=== PATIENT | male | born 1985 | race Caucasian/White ===

== ENCOUNTER 2018-04-01 11:47 | Emergency (ER) | payer MEDICAID ==
[2018-04-01 12:10] LABS: BILIRUBIN,URINE NEGATIVE (NEGATIVE); CLARITY,URINE CLEAR (CLEAR); GLUCOSE, URINE (UA) NEGATIVE (NEGATIVE); KETONES,URINE (UA) NEGATIVE (NEGATIVE); LEUKOCYTE ESTERASE, URINE NEGATIVE (NEGATIVE); NITRITE,URINE NEGATIVE (NEGATIVE); OCCULT BLOOD,URINE NEGATIVE (NEGATIVE); PH,URINE 8.5 PH (5.0-7.5); PROTEIN,URINE TRACE mg/dL (NEGATIVE); UROBILINOGEN,URINE 0.2 (NORMAL) E.U./dL (NORMAL)
[2018-04-01 12:43] LABS: BASOPHILS % (AUTO) 0.2 %; EOSINOPHILS % (AUTO) 0.3 %; HGB - HEMOGLOBIN 13.9 g/dL (14.0-18.0); LYMPHOCYTES # (AUTO) 0.8 10^3/uL (1.5-3.5); LYMPHOCYTES % (AUTO) 9.4 %; MEAN CORPUSCULAR HEMOGLOBIN 29.7 pg (27.0-31.0); MEAN CORPUSCULAR HGB CONC 33.8 g/dL (32.0-36.0); MEAN CORPUSCULAR VOLUME 87.7 fL (80.0-94.0); MEAN PLATELET VOLUME 7.7 fL (7.4-11.4); MONOCYTES # (AUTO) 0.3 10^3/uL (0.0-1.0); MONOCYTES % (AUTO) 3.7 %; NEUTROPHILS # (AUTO) 7.2 10^3/uL (1.5-6.6); NEUTROPHILS % (AUTO) 86.4 %; PLT - PLATELET COUNT 217 10^3/uL (130-450); RED BLOOD COUNT 4.67 10^6/uL (4.70-6.10); RED CELL DISTRIBUTION WIDTH 12.6 % (12.0-15.0); WHITE BLOOD COUNT 8.3 x10^3/uL (4.8-10.8)
[2018-04-01 12:55] LABS: ALBUMIN 4.4 g/dL (3.2-5.5); ALBUMIN/GLOBULIN RATIO 1.8 (1.0-2.2); BILIRUBIN,TOTAL 0.9 mg/dL (0.2-1.0); CALCIUM 9.3 mg/dL (8.5-10.3); CREATININE 0.7 mg/dL (0.6-1.2); TOTAL PROTEIN 6.9 g/dL (6.7-8.2)
[2018-04-01] MEDS ORDERED: MORPHINE 2 MG/ML SYRINGE IVP STA ×2 (14:33→16:55)
[2018-04-01] MEDS ORDERED: ONDANSETRON 4 MG/2 ML VIAL IVP STA (14:33)
[2018-04-01] MEDS ORDERED: SODIUM CHLORIDE 0.9% 1,000 ML IV ONE (14:33)
--- NOTE | 2018-04-01 14:36 | ED Physician Documentation ---
History of Present Illness - Stated complaint Stated Complaint: R SIDE PX - Chief complaint Chief Complaint: Abd Pain - Additonal information Additional information: hx from pt 32 m no pmhx no prior surgeries was fine yesterday this AM severe right side abd pain rad to back no fever + NV no diarrhea no hematuria no pain Review of Systems Constitutional: denies: Fever Cardiac: denies: Chest pain / pressure Respiratory: denies: Dyspnea GI: reports: Abdominal Pain, Nausea, Vomiting. denies: Diarrhea, Bloody / black stool : denies: Dysuria, Hematuria, Testicular pain Musculoskeletal: reports: Back pain Endocrine: denies: Easy bruising / bleeding Immunocompromised: denies: Immunocompromised PD PAST MEDICAL HISTORY - Past Surgical History Past Surgical History: No - Present Medications Home Medications: Ambulatory Orders Medication Instructions Recorded Confirmed oxyCODONE [Roxicodone] 5 mg PO Q4-6H PRN #15 tablet 04/01/18 - Allergies Allergies/Adverse Reactions: Allergies Allergy/AdvReac Type Severity Reaction Status Date / Time No Known Drug Allergies Allergy Verified 04/01/18 11:57 - Social History Does the pt smoke?: Yes Smoking Status: Current every day smoker Does the pt have substance abuse?: Yes - Immunizations Immunizations are current?: Yes - POLST Patient has POLST: No PD ED PE NORMAL - Vitals Vital signs reviewed: Yes - Neck Neck: Supple, no meningeal sign - Cardiac Cardiac: RRR - Respiratory Respiratory: No respiratory distress, Clear bilaterally - Abdomen Abdomen: Normal bowel sounds, Soft, Other (sig TTP with guarding right side) - Back Back: No CVA TTP - Derm Derm: Normal color - Neuro Neuro: Alert and oriented X 3, No motor deficit Results - Vitals Vitals: Vital Signs - 24 hr 04/01/18 04/01/18 04/01/18 11:55 16:52 18:08 Temperature 35.9 C L Heart Rate 55 L 49 L 68 Respiratory 20 14 14 Rate Blood Pressure 144/67 H 139/77 H 110/61 O2 Saturation 100 100 99 Oxygen O2 Source Room air - Labs Labs: Laboratory Tests 04/01/18 04/01/18 04/01/18 12:00 12:36 12:36 WBC 8.3 RBC 4.67 L Hgb 13.9 L Hct 41.0 L MCV 87.7 MCH 29.7 MCHC 33.8 RDW 12.6 Plt Count 217 MPV 7.7 Neut # (Auto) 7.2 H Lymph # (Auto) 0.8 L [place] # (Auto) 0.3 Eos # (Auto) 0.0 Baso # (Auto) 0.0 Absolute Nucleated RBC 0.00 Nucleated RBC % 0.0 Sodium 137 Potassium 3.9 Chloride 107 Carbon Dioxide 23 Anion Gap 7.0 BUN 17 Creatinine 0.7 Estimated GFR (MDRD) 129 Glucose 135 H Calcium 9.3 Total Bilirubin 0.9 AST 20 ALT 17 Alkaline Phosphatase 42 Total Protein 6.9 Albumin 4.4 Globulin 2.5 Albumin/Globulin Ratio 1.8 Lipase 23 Urine Color YELLOW Urine Clarity CLEAR Urine pH 8.5 H Ur Specific [place] 1.010 Urine Protein TRACE Urine Glucose (UA) NEGATIVE Urine Ketones NEGATIVE Urine Occult Blood NEGATIVE Urine Nitrite NEGATIVE Urine Bilirubin NEGATIVE Urine Urobilinogen 0.2 (NORMAL) Ur Leukocyte Esterase NEGATIVE Ur Microscopic Review NOT INDICATED Urine Culture Comments NOT INDICATED - Rads (name of study) CT AP Radiology: See rad report (nl appendix, polycystic kidneys at least 20 cuysts in each kidney largest up to 2.4 cm) ruq sono Radiology: See rad report (no gallstones or acute leonel, polycystic kidney) PD MEDICAL DECISION MAKING - ED course ED course: acute severe R abd and flank pain labs normal CT (with contrast) shows polycystic kidney dz but no acute appy, renal / ureteral stone, renal infarct, biliary, dissection /aneursym etc suspect pain is due to polycystic kidneys (perhaps some hemorrhage within a cyst or acute enlargement) will dc with pain meds and referral to urology only one liver cyst BP is elevated but not dangerously so - nephrology may rec meds MSE exam provided identified polycystic kidneys - labs and CT and sono do not suggest infection rupture ischemia appy leonel etc improtant finding and needs close nephrology fup but feel stable and safe for dc - Sepsis Event Vital Signs: Vital Signs - 24 hr 04/01/18 04/01/18 04/01/18 11:55 16:52 18:08 Temperature 35.9 C L Heart Rate 55 L 49 L 68 Respiratory 20 14 14 Rate Blood Pressure 144/67 H 139/77 H 110/61 O2 Saturation 100 100 99 Oxygen O2 Source Room air Departure - Departure Disposition: 01 Home, Self Care Clinical Impression: Polycystic kidney Abdominal pain Qualifiers: Abdominal location: right upper quadrant Qualified Code(s): R10.11 - Right upper quadrant pain Condition: Good Follow-Up: Jayde Quezada MD [Provider Admit Priv/Credential] - (follow up with nephrology is very important) Prescriptions: oxyCODONE [Roxicodone] 5 mg PO Q4-6H PRN #15 tablet PRN Reason: Severe Pain Comments: Your CT scan and ultrasound did not show kidney stones, gallstones, an aneurysm or appendicitis You do have polycystic kidney disease - this is an important finding and follow up with a semiconductor dies loader is very very important because polycystic kidney disease can cause many termite treater health problems There is not anything more than can be done in the [facility] ER for you kidney - it is OK for you to go home for tonight with pain medications to be taken as needed. I prescribed oxycodone for the pain - please only take this for severe pain - if plain tylenol will suffice, take that instead Return if worse
[2018-04-01] MEDS ORDERED: IOPAMIDOL-300 100 ML VIAL ONE (15:38)
[2018-04-01] MEDS ORDERED: IOPAMIDOL-300 100 ML VIAL IVP ONE (15:48)
--- NOTE | 2018-04-01 16:21 | CT Report ---
Procedure Date: 04/01/2018 Accession Number: [id number] / [id number] Procedure: CT - Abdomen/Pelvis W/ CPT Code: FULL RESULT: EXAM: CT ABDOMEN AND PELVIS EXAM DATE: 04/01/2018 04:03 PM. CLINICAL HISTORY: Right abd pain. COMPARISONS: None. TECHNIQUE: Routine helical CT imaging was performed through the abdomen and pelvis. IV contrast: ISOVUE 300 100mL. Enteric contrast: No. Reconstructions: Coronal and sagittal. In accordance with CT protocol optimization, one or more of the following dose reduction techniques were utilized for this exam: automated exposure control, adjustment of mA and/or KV based on patient size, or use of iterative reconstructive technique. FINDINGS: ABDOMEN: Lung Bases: Incompletely included lower lungs are grossly clear. Heart size is within normal limits. No basilar effusions. Liver: Unremarkable aside from a subcentimeter cyst. Spleen: Unremarkable. Pancreas: Unremarkable. Gallbladder/Bile Ducts: Gallbladder is unremarkable. Biliary tree is normal caliber. Adrenal Glands: Unremarkable. Kidneys: Numerous cysts bilaterally, approximately 20 in each kidney, the largest on the right measuring 1.7 cm and the largest on the left measuring up to 2.4 cm. Peritoneum/Mesentery/Bowel: No free fluid, free air, or collection. No intestinal obstruction or inflammation. The appendix is within normal limits. Lymph nodes: No mesenteric, periportal, or retroperitoneal lymphadenopathy. Vasculature: Abdominal aorta is nonaneurysmal. Portal vein is patent. Hepatic veins are patent. PELVIS: The bladder is unremarkable for the degree of distention. Prostate is present. No pelvic lymphadenopathy. Bones: No suspicious osseous lesions. IMPRESSION: No acute abnormalities. Polycystic kidneys. RADIA
[2018-04-01] MEDS ORDERED: KETOROLAC 60 MG/2 ML VIAL IVP STA (16:55)
--- NOTE | 2018-04-01 18:14 | Ultrasound Report ---
Procedure Date: 04/01/2018 Accession Number: [id number] / [id number] Procedure: US - Abdomen Limited CPT Code: FULL RESULT: EXAM: ABDOMEN ULTRASOUND LIMITED, RUQ EXAM DATE: 04/01/2018 05:57 PM. CLINICAL HISTORY: Right abdominal pain, evaluate gallbladder please. COMPARISON: CT of the abdomen and pelvis with contrast 04/01/2018. TECHNIQUE: Real-time scanning was performed with static images obtained. FINDINGS: Liver: Normal in size and echotexture. 15.0 cm. Main portal vein flow: Hepatopetal. Gallbladder: Normal. No stones, wall thickening, or sonographic Gaytan's sign. However, the patient has reportedly received analgesics, limiting the sensitivity of the sonographic Gaytan's sign. Biliary System: CBD measures 5.5 mm. No intrahepatic or extrahepatic ductal dilatation. Other: Normal size right kidney without hydronephrosis. Multiple simple cysts visualized, as on recent CT, the largest measuring 1.4 cm. IMPRESSION: 1. No cholelithiasis or sonographic evidence of acute cholecystitis. 2. Polycystic right kidney. RADIA
[2018-04-01 19:14] VITALS: BP 115/59
== END 2018-04-01 19:16 | disposition home or self-care (01) ==
LOC: ED 11:47
DX: Q61.3 Polycystic kidney, unspecified (principal); R10.11 Right upper quadrant pain; F17.200 Nicotine dependence, unspecified, uncomplicated
CPT/HCPCS: 36415; 74177; 76705; 80053; 81003; 83690; 85025; 96361; 96374; 96375; 96376; 99283; J2270; Q9967; 81001; 87086

== ENCOUNTER 2019-06-04 08:40 | Emergency (ER) | payer SELFPAY ==
[2019-06-04] MEDS ORDERED: LIDOCAINE VISCOUS 2% 15 ML UDC MM STA (09:24)
[2019-06-04] MEDS ORDERED: MAG HYDROX/AL HYDROX/SIMETH 30 ML UDC PO STA (09:24)
[2019-06-04] MEDS ORDERED: ONDANSETRON 4 MG/2 ML VIAL IVP STA (09:25)
--- NOTE | 2019-06-04 09:26 | ED Physician Documentation ---
PD HPI CHEST PAIN - Stated complaint Stated Complaint: CHEST PX - Chief complaint Chief Complaint: Abd Pain - History obtained from History obtained from: Patient - History of Present Illness Timing - onset: Today Timing - onset during: Rest Timing - details: Still present Quality: Pain Location: Substernal, Epigastric Worsened by: Palpation Associated symptoms: Nausea, Vomiting Similar symptoms before: Diagnosis (Gastric ulcers.) - Additional information Additional information: The patient is a 33-year-old male who presents with substernal chest pain that started this morning about 2 hours prior to arrival, and has been waxing and waning since that time. He reports associated nausea with multiple episodes of vomiting. He denies cough or shortness of breath. He denies fever or diap horesis. In addition to substernal chest discomfort he also complains of upper abdominal discomfort. He reports history of similar symptoms intermittently in the past, with a diagnosis of gastric ulcers. He reports drinking large quantities of Mountain Dew and red bull on a daily basis. Review of Systems Constitutional: denies: Fever Nose: denies: Congestion Throat: denies: Sore throat Cardiac: reports: Chest pain / pressure Respiratory: denies: Dyspnea, Cough GI: reports: Abdominal Pain (Upper abdomen.), Nausea, Vomiting. denies: Diarrhea : denies: Dysuria Skin: denies: Rash Musculoskeletal: denies: Back pain Neurologic: denies: Headache PD PAST MEDICAL HISTORY - Past Medical History Cardiovascular: None Respiratory: None Endocrine/Autoimmune: None GI: Ulcers Other Past Medical History: Ulcer, kidney cyst. - Past Surgical History Past Surgical History: No - Present Medications Home Medications: Ambulatory Orders Medication Instructions Recorded Confirmed Hydrocodone/Acetaminophen 1 - 2 each PO Q6H PRN #14 tablet 06/04/19 [Hydrocodon-Acetaminophen 5-325] Promethazine [Phenergan] 25 mg PO Q6H PRN #10 tab 06/04/19 raNITIdine [Zantac] 150 mg PO BID #30 tablet 06/04/19 - Allergies Allergies/Adverse Reactions: Allergies Allergy/AdvReac Type Severity Reaction Status Date / Time No Known Drug Allergies Allergy Verified 06/04/19 08:45 - Social History Does the pt smoke?: Yes Smoking Status: Current every day smoker Does the pt drink ETOH?: No Does the pt have substance abuse?: Yes Substance Use and Type: Marijuana - Immunizations Immunizations are current?: Yes - POLST Patient has POLST: No PD ED PE NORMAL - Vitals Vital signs reviewed: Yes (Borderline hypotensive initially.) - General General: Alert and oriented X 3, Well developed/nourished - HEENT HEENT: Atraumatic, Pharynx benign - Neck Neck: No adenopathy, No JVD - Cardiac Cardiac: RRR - Respiratory Respiratory: No respiratory distress, Clear bilaterally - Abdomen Abdomen: Normal bowel sounds, Soft, Non distended, No organomegaly, Other (Tenderness to palpation in the epigastrium and left upper quadrant, without rebound or guarding.) - Back Back: No CVA TTP - Extremities Extremities: No edema, No calf tenderness / cord - Neuro Neuro: Alert and oriented X 3, No motor deficit, Normal speech Results - Vitals Vitals: Vital Signs - 24 hr 06/04/19 06/04/19 10:49 12:36 Heart Rate 42 L 81 Respiratory 16 16 Rate Blood Pressure 166/90 H 139/61 H O2 Saturation 96 98 Oxygen O2 Source Room air - EKG (time done) 08:42 Rate: Rate (enter#) (48) Rhythm: Sinus bradycardia [place]: Normal Intervals: Normal [place] QRS: Normal Ischemia: Normal ST segments Computer interpretation: Agree with computer - Labs Labs: Laboratory Tests 06/04/19 06/04/19 09:36 09:36 WBC 11.8 H RBC 4.99 Hgb 14.7 Hct 43.9 MCV 88.0 MCH 29.5 MCHC 33.5 RDW 12.2 Plt Count 259 MPV 8.9 Neut # (Auto) 9.9 H Lymph # (Auto) 1.1 L [place] # (Auto) 0.7 Eos # (Auto) 0.1 Baso # (Auto) 0.0 Absolute Nucleated RBC 0.00 Nucleated RBC % 0.0 Sodium 141 Potassium 3.8 Chloride 107 Carbon Dioxide 23 Anion Gap 11.0 BUN 14 Creatinine 0.8 Estimated GFR (MDRD) 110 Glucose 160 H Calcium 9.8 Total Bilirubin 0.9 AST 22 ALT 15 Alkaline Phosphatase 56 Total Protein 7.7 Albumin 5.0 Globulin 2.7 Albumin/Globulin Ratio 1.9 Lipase 23 - Rads (name of study) CXR Radiology: Prelim report reviewed, EMP read contemporaneously, See rad report (Normal single view chest.) CT abd/pelvis Radiology: Prelim report reviewed, EMP read contemporaneously, See rad report (1) Numerous renal cysts. 2) Mildly distended fluid-filled stomach.) PD MEDICAL DECISION MAKING - ED course Complexity details: reviewed results, re-evaluated patient, considered differential, d/w patient, d/w family ED course: The patient's presentation is most consistent with gastritis versus peptic ulcer disease. Cardiac ischemia is unlikely, and his EKG was normal. Chest x-ray reveals no evidence of acute pulmonary pathology. CT scan of his abdomen and pelvis reveals a mildly distended fluid-filled stomach, without other pathology identified, except for bilateral renal cysts which had been previously identified, and appeared unchanged. Treatment in the emergency department included administration of GI cocktail, which did not relieve his symptoms. Normal saline 1 L was administered IV, Zofran 4 mg IV, and morphine 4 mg IV. His pain continued, until the got relief with administration of Dilaudid 1 mg IV. His pain recurred, but was relieved after administration of fentanyl 75 g IV. On reexamination his abdomen is benign. He is being discharged with prescriptions for ranitidine, Phenergan, and Vicodin, 14 tablets. 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 Departure - Departure Disposition: 01 Home, Self Care Clinical Impression: Gastritis Qualifiers: Gastritis type: unspecified gastritis Chronicity: acute Gastritis bleeding: without bleeding Qualified Code(s): K29.00 - Acute gastritis without bleeding Condition: Stable Instructions: ED PUD Vs Gastritis Prescriptions: Hydrocodone/Acetaminophen [Hydrocodon-Acetaminophen 5-325] 1 - 2 each PO Q6H PRN #14 tablet PRN Reason: pain Promethazine [Phenergan] 25 mg PO Q6H PRN #10 tab PRN Reason: Nausea / Vomiting raNITIdine [Zantac] 150 mg PO BID #30 tablet Comments: Minimize sandy, coffee, and alcohol. Take ranitidine twice daily as prescribed. You can use liquid antacid, such as Maalox or Mylanta if you develop recurrent symptoms. Schedule follow-up appointment with primary physician. Return to the emergency department if you develop increasing abdominal pain or chest pain, persistent vomiting, or otherwise worsening symptoms. Discharge Date/Time: 06/04/19 14:08
[2019-06-04] MEDS ORDERED: MORPHINE 2 MG/ML CARPUJECT IVP STA (09:44)
[2019-06-04] MEDS ORDERED: SODIUM CHLORIDE 0.9% 1,000 ML IV ONE (09:45)
[2019-06-04 09:47] LABS: BASOPHILS % (AUTO) 0.3 %; EOSINOPHILS # (AUTO) 0.1 10^3/uL (0.0-0.7); EOSINOPHILS % (AUTO) 0.4 %; HGB - HEMOGLOBIN 14.7 g/dL (14.0-18.0); LYMPHOCYTES # (AUTO) 1.1 10^3/uL (1.5-3.5); LYMPHOCYTES % (AUTO) 9.4 %; MEAN CORPUSCULAR HEMOGLOBIN 29.5 pg (27.0-31.0); MEAN CORPUSCULAR HGB CONC 33.5 g/dL (32.0-36.0); MEAN PLATELET VOLUME 8.9 fL (7.4-11.4); MONOCYTES # (AUTO) 0.7 10^3/uL (0.0-1.0); MONOCYTES % (AUTO) 5.7 %; NEUTROPHILS # (AUTO) 9.9 10^3/uL (1.5-6.6); NEUTROPHILS % (AUTO) 83.8 %; PLT - PLATELET COUNT 259 10^3/uL (130-450); RED BLOOD COUNT 4.99 10^6/uL (4.70-6.10); RED CELL DISTRIBUTION WIDTH 12.2 % (12.0-15.0); WHITE BLOOD COUNT 11.8 x10^3/uL (4.8-10.8)
[2019-06-04 09:58] LABS: ALBUMIN/GLOBULIN RATIO 1.9 (1.0-2.2); BILIRUBIN,TOTAL 0.9 mg/dL (0.2-1.0); CALCIUM 9.8 mg/dL (8.5-10.3); CREATININE 0.8 mg/dL (0.6-1.2); TOTAL PROTEIN 7.7 g/dL (6.7-8.2)
[2019-06-04] MEDS ORDERED: HYDROmorphone 1 MG/ML CARPUJECT IVP STA (10:07)
--- NOTE | 2019-06-04 11:54 | XRAY Report ---
Reason: chest pain Procedure Date: 06/04/2019 Accession Number: [id number] / [id number] Procedure: XR - Chest 1 View X-Ray CPT Code: 01727 FULL RESULT: EXAM: CHEST RADIOGRAPHY EXAM DATE: 06/04/2019 10:25 AM. CLINICAL HISTORY: Chest pain. COMPARISON: None. TECHNIQUE: 1 view. FINDINGS: Lungs/Pleura: No focal opacities evident. No pleural effusion. No pneumothorax. Mediastinum: Within exam limitations, the cardiomediastinal contour is normal. Other: None. IMPRESSION: Normal single view chest. RADIA
[2019-06-04 12:37] VITALS: BP 139/61
[2019-06-04] MEDS ORDERED: fentaNYL 100 MCG/2 ML VIAL IVP STA (12:37)
[2019-06-04] MEDS ORDERED: IOVERSOL 320 100 ML VIAL IVP ONE ×2 (12:53→13:44)
--- NOTE | 2019-06-04 13:41 | CT Report ---
Reason: LUQ abd. pain Procedure Date: 06/04/2019 Accession Number: [id number] / [id number] Procedure: CT - Abdomen/Pelvis W CPT Code: FULL RESULT: EXAM: CT ABDOMEN AND PELVIS EXAM DATE: 06/04/2019 01:07 PM. CLINICAL HISTORY: LUQ abd. pain. COMPARISONS: ABDOMEN/PELVIS W/ 04/01/2018 3:49 PM CHEST 1 VIEW 06/04/2019 10:05 AM. TECHNIQUE: Routine helical CT imaging was performed through the abdomen and pelvis. IV contrast: OPTI 320 90ML. Enteric contrast: No. Reconstructions: Coronal and sagittal. In accordance with CT protocol optimization, one or more of the following dose reduction techniques were utilized for this exam: automated exposure control, adjustment of mA and/or KV based on patient size, or use of iterative reconstructive technique. FINDINGS: Lung Bases: Unremarkable. Liver: Normal. No masses. Gallbladder/Bile Ducts: Unremarkable. Spleen: Normal. Pancreas: Normal. Adrenal Glands: Normal. Kidneys: Numerous bilateral cysts similar to previous exam. Peritoneal Cavity/Bowel: Mildly distended fluid-filled stomach. No free fluid, free air or adenopathy. No masses or acute inflammatory process. The appendix is well visualized and normal. Pelvic Organs: Normal. The bladder and visualized pelvic organs are within normal limits. Vasculature: No aneurysms or other significant abnormality. Bones: No significant abnormality. Other: None. IMPRESSION: 1. Numerous renal cysts. 2. Mildly distended fluid-filled stomach. RADIA
== END 2019-06-04 14:08 | disposition home or self-care (01) ==
LOC: ED 08:40
DX: K29.00 Acute gastritis without bleeding (principal); Z87.11 Personal history of peptic ulcer disease; Q61.02 Congenital multiple renal cysts; R00.1 Bradycardia, unspecified; F17.200 Nicotine dependence, unspecified, uncomplicated
CPT/HCPCS: 36415; 71045; 74177; 80053; 83690; 85025; 93005; 96374; 96375; 99284; 99285; A9270; J1170; Q9967

== ENCOUNTER 2019-08-04 07:00 | Observation (INO) | payer MEDICAID ==
--- NOTE | 2019-08-04 07:32 | ED Physician Documentation ---
PD HPI ABD PAIN - Stated complaint Stated Complaint: ABD PX - Chief complaint Chief Complaint: Abd Pain - History obtained from History obtained from: Patient - History of Present Illness Timing - onset: Last night Timing - details: Abrupt onset, Still present Quality: Cramping, Aching, Pain Location: RUQ, Epigastric Radiation: Upper back Improved by: Vomiting Worsened by: Eating Associated symptoms: Nausea, Vomiting, Constipation (has had less stools but last BM was yesterday.). No: Fever, Hematemesis, Diarrhea, Hematochezia, Dysuria Similar symptoms before: No diagnosis (has upper abd pain and bloating with eating in mornings fairly regularly. Has not had the persistent pain and vomiting like today.) Recently seen: Not recently seen Review of Systems Constitutional: denies: Fever, Chills, Myalgias Nose: denies: Rhinorrhea / runny nose, Congestion Throat: denies: Sore throat Cardiac: denies: Chest pain / pressure, Palpitations Respiratory: denies: Dyspnea, Cough GI: reports: Abdominal Pain, Abdominal Swelling (upper abd), Nausea, Vomiting, Constipation. denies: Diarrhea, Bloody / black stool : denies: Dysuria, Frequency Skin: denies: Rash, Lesions Neurologic: reports: Generalized weakness. denies: Focal weakness, Numbness, Near syncope, Confused, Altered mental status, Headache PD PAST MEDICAL HISTORY - Past Medical History Cardiovascular: None Respiratory: None Endocrine/Autoimmune: None GI: Ulcers - Past Surgical History Past Surgical History: No - Present Medications Home Medications: Ambulatory Orders Medication Instructions Recorded Confirmed Hydrocodone/Acetaminophen 1 - 2 each PO Q6H PRN #14 tablet 06/04/19 [Hydrocodon-Acetaminophen 5-325] Promethazine [Phenergan] 25 mg PO Q6H PRN #10 tab 06/04/19 raNITIdine [Zantac] 150 mg PO BID #30 tablet 06/04/19 - Allergies Allergies/Adverse Reactions: Allergies Allergy/AdvReac Type Severity Reaction Status Date / Time No Known Drug Allergies Allergy Verified 06/04/19 08:45 - Social History Does the pt smoke?: Yes Smoking Status: Current every day smoker Does the pt drink ETOH?: No Does the pt have substance abuse?: Yes - Immunizations Immunizations are current?: Yes - POLST Patient has POLST: No PD ED PE NORMAL - Vitals Vital signs reviewed: Yes - General General: Alert and oriented X 3, Well developed/nourished, Other (appears uncomfortable) - HEENT HEENT: Ears normal, Pharynx benign - Neck Neck: Supple, no meningeal sign, No adenopathy - Cardiac Cardiac: RRR, No murmur - Respiratory Respiratory: Clear bilaterally - Abdomen Abdomen: Soft, Other (fullness/firm in upper abd. Tender with guarding upper abd mid and right. ). No: Normal bowel sounds (increased) - Male Male : Deferred - Rectal Rectal: Deferred - Back Back: No CVA TTP - Derm Derm: Normal color, Warm and dry - Extremities Extremities: No tenderness to palpate, Normal ROM s pain - Neuro Neuro: Alert and oriented X 3, No motor deficit, Normal speech Results - Vitals Vitals: Vital Signs - 24 hr 08/04/19 08/04/19 07:11 09:26 Temperature 36.5 C Heart Rate 52 L 66 Respiratory 15 18 Rate Blood Pressure 175/109 H 109/62 O2 Saturation 100 100 Oxygen O2 Source Room air - Labs Labs: Laboratory Tests 08/04/19 08/04/19 08/04/19 07:30 07:30 10:18 WBC 9.9 RBC 5.11 Hgb 15.3 Hct 45.8 MCV 89.6 MCH 29.9 MCHC 33.4 RDW 12.3 Plt Count 248 MPV 9.1 Neut # (Auto) 8.0 H Lymph # (Auto) 1.0 L [place] # (Auto) 0.7 Eos # (Auto) 0.0 Baso # (Auto) 0.0 Absolute Nucleated RBC 0.00 Nucleated RBC % 0.0 Sodium 135 Potassium 3.6 Chloride 101 Carbon Dioxide 24 Anion Gap 10.0 BUN 18 Creatinine 0.7 Estimated GFR (MDRD) 128 Glucose 135 H Calcium 9.1 Total Bilirubin 1.1 H AST 21 ALT 20 Alkaline Phosphatase 51 Total Protein 7.5 Albumin 5.0 Globulin 2.5 Albumin/Globulin Ratio 2.0 Lipase 32 Urine Color DARK YELLOW Urine Clarity CLEAR Urine pH 7.0 Ur Specific [place] <=1.005 Urine Protein NEGATIVE Urine Glucose (UA) NEGATIVE Urine Ketones NEGATIVE Urine Occult Blood NEGATIVE Urine Nitrite NEGATIVE Urine Bilirubin NEGATIVE Urine Urobilinogen 0.2 (NORMAL) Ur Leukocyte Esterase NEGATIVE Ur Microscopic Review NOT INDICATED Urine Culture Comments NOT INDICATED - Rads (name of study) abd CT Radiology: Prelim report reviewed (distended duodenum with a/f levels c/w partial obstruction. 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 Verde and Hospitalist.) Departure - Departure Disposition: 66 [facility] DC/Xfer Clinical Impression: Partial obstruction of small intestine Abdominal pain Qualifiers: Abdominal location: right upper quadrant Qualified Code(s): R10.11 - Right upper quadrant pain Nausea & vomiting Qualifiers: Vomiting type: unspecified Vomiting Intractability: unspecified Qualified Code(s): R11.2 - Nausea with vomiting, unspecified Discharge Date/Time: 08/04/19 11:35
[2019-08-04] MEDS ORDERED: HYDROmorphone 2 MG/ML VIAL IVP STA ×2 (07:43→21:59)
[2019-08-04] MEDS ORDERED: ONDANSETRON 4 MG/2 ML VIAL IVP STA (07:43)
[2019-08-04] MEDS ORDERED: SODIUM CHLORIDE 0.9% 1,000 ML IV ONE ×2 (07:43→10:15)
[2019-08-04] MEDS ORDERED: KETOROLAC 30 MG/ML VIAL IVP STA ×2 (07:43→21:58)
[2019-08-04 07:58] LABS: BASOPHILS % (AUTO) 0.3 %; EOSINOPHILS % (AUTO) 0.2 %; HGB - HEMOGLOBIN 15.3 g/dL (14.0-18.0); LYMPHOCYTES % (AUTO) 10.6 %; MEAN CORPUSCULAR HEMOGLOBIN 29.9 pg (27.0-31.0); MEAN CORPUSCULAR HGB CONC 33.4 g/dL (32.0-36.0); MEAN CORPUSCULAR VOLUME 89.6 fL (80.0-94.0); MEAN PLATELET VOLUME 9.1 fL (7.4-11.4); MONOCYTES # (AUTO) 0.7 10^3/uL (0.0-1.0); MONOCYTES % (AUTO) 6.7 %; NEUTROPHILS % (AUTO) 81.4 %; PLT - PLATELET COUNT 248 10^3/uL (130-450); RED BLOOD COUNT 5.11 10^6/uL (4.70-6.10); RED CELL DISTRIBUTION WIDTH 12.3 % (12.0-15.0); WHITE BLOOD COUNT 9.9 x10^3/uL (4.8-10.8)
[2019-08-04] MEDS ORDERED: IOVERSOL 320 100 ML VIAL IVP ONE ×2 (07:58→14:30)
[2019-08-04 08:04] LABS: BILIRUBIN,TOTAL 1.1 mg/dL (0.2-1.0); CALCIUM 9.1 mg/dL (8.5-10.3); CREATININE 0.7 mg/dL (0.6-1.2); TOTAL PROTEIN 7.5 g/dL (6.7-8.2)
--- NOTE | 2019-08-04 09:10 | CT Report ---
Reason: RUQ severe pain for 2 days Procedure Date: 08/04/2019 Accession Number: [id number] / [id number] Procedure: CT - Abdomen/Pelvis W CPT Code: Final Report FULL RESULT: EXAM: CT ABDOMEN AND PELVIS EXAM DATE: 08/04/2019 08:32 AM. CLINICAL HISTORY: RUQ severe abdominal pain for 2 days. COMPARISONS: ABDOMEN/PELVIS W/ 06/04/2019 1:03 PM. TECHNIQUE: Routine helical CT imaging was performed through the abdomen and pelvis. IV contrast: 90 cc Optiray 320. Enteric contrast: No. Reconstructions: Coronal and sagittal. In accordance with CT protocol optimization, one or more of the following dose reduction techniques were utilized for this exam: automated exposure control, adjustment of mA and/or KV based on patient size, or use of iterative reconstructive technique. FINDINGS: Lung Bases: Unremarkable. Liver: Normal. No masses. Gallbladder/Bile Ducts: Unremarkable. Spleen: Normal. Pancreas: Normal. Adrenal Glands: Normal. Kidneys: There are multiple bilateral renal cortical cysts, as seen on the prior exam. No masses or hydronephrosis. Peritoneal Cavity/Bowel: The stomach is not distended. The proximal duodenum is dilated with fluid and gas. The diameter measures up to 4.1 m (series 5 image 17). There was a transition point in the third portion of the duodenum as it passes between the aorta and superior mesenteric artery (series 3 image 33). No dilatation of the jejunum or ileum. No abnormal colonic stool burden. No free fluid, free air or adenopathy. No masses or acute inflammatory process. The appendix is well visualized and normal. Pelvic Organs: Normal. The bladder and visualized pelvic organs are within normal limits. Vasculature: No aneurysm or atherosclerotic calcification. The aorto-SMA distance measures 7 mm at the site where the duodenum crosses anterior to the aorta. The aorto-SMA angle measures approximately 20 degrees on sagittal images. Bones: No significant abnormality. Other: None. IMPRESSION: 1. Mildly distended proximal duodenum with a transition point as the duodenum passes between the aorta and superior mesenteric artery. This raises the possibility of SMA syndrome (partial obstruction due to extrinsic compression of the duodenum between the SMA and aorta). This could also be a transient finding in an otherwise normal patient. Duodenal dilatation was not present on the prior CT, although the stomach was mildly distended. Recommend clinical correlation. 2. Multiple bilateral renal cortical cysts, as seen on the prior exam. 3. Otherwise unremarkable CT of the abdomen and pelvis. RADIA
[2019-08-04] MEDS ORDERED: FAMOTIDINE 20 MG/2 ML VIAL IVP STA (10:17)
[2019-08-04] MEDS ORDERED: DOCUSATE SODIUM 100 MG CAPSULE PO STA (10:17)
[2019-08-04] MEDS ORDERED: ONDANSETRON 4 MG/2 ML VIAL IVP PRN (10:23)
[2019-08-04] MEDS ORDERED: oxyCODONE 5 MG TABLET PO PRN (10:23)
[2019-08-04 10:29] LABS: BILIRUBIN,URINE NEGATIVE (NEGATIVE); GLUCOSE, URINE (UA) NEGATIVE (NEGATIVE); KETONES,URINE (UA) NEGATIVE (NEGATIVE); LEUKOCYTE ESTERASE, URINE NEGATIVE (NEGATIVE); NITRITE,URINE NEGATIVE (NEGATIVE); OCCULT BLOOD,URINE NEGATIVE (NEGATIVE); PROTEIN,URINE NEGATIVE (NEGATIVE); UROBILINOGEN,URINE 0.2 (NORMAL) E.U./dL (NORMAL)
[2019-08-04 10:30] LABS: CLARITY,URINE CLEAR (CLEAR)
--- NOTE | 2019-08-04 10:31 | HISTORY & PHYSICAL EXAMINATION ---
Chief Complaint - Chief Complaint Chief Complaint: N/V and abdominal pain History of Present Illness - History of Present Illness HPI Comment/Other: Mr. Arauz is a 33-yrs-old male without significant medical hx, who present ER complain of nausea, vomiting and abdominal pain. pt report since beginning from this Friday, he continue to have nausea and vomiting. he report acute on chronic upper gastric pain. His last bowel movement was this week Friday morning. He denies fever, chill, hematemesis, chest pain, shortness of breath. 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 GI surgeon was consulted. pt's route lab test in ER was unremarkable otherwise pt is hemodynamically stable. pt is admitted for above medical reason. History - Past Medical History Cardiovascular: reports: None Respiratory: reports: None Endocrine/Autoimmune: reports: None GI: reports: Ulcers MRSA Hx?: No - Family & Social History Family History: Mother: Alive and Well, Father: Family History Comment/Other: pt report his mother and grandmother from his father side had the similar chronic abdominal pain issue but he is unknown exact diagnosis. his father at his fourty ago, pt is unknown his father medical hx. 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 he still smoked one pack perday but denies Nicotin Patch now. pt denies alcohol and drug issue. - Substance History Use: Uses substance without health or social issues: Tobacco - POLST Patient has POLST: No POLST Status: Full Code Meds/Allgy - Home Medications Home Medications: Ambulatory Orders Medication Instructions Recorded Confirmed Hydrocodone/Acetaminophen 1 - 2 each PO Q6H PRN #14 tablet 06/04/19 [Hydrocodon-Acetaminophen 5-325] Promethazine [Phenergan] 25 mg PO Q6H PRN #10 tab 06/04/19 raNITIdine [Zantac] 150 mg PO BID #30 tablet 06/04/19 - Allergies Allergies/Adverse Reactions: Allergies Allergy/AdvReac Type Severity Reaction Status Date / Time No Known Drug Allergies Allergy Verified 06/04/19 08:45 Review of Systems - Constitutional Constitutional: denies: Fatigue, Fever, Chills, Malaise, Weakness, Poor appetite, Diaphoresis, Night sweats - Eyes Eyes: denies: Pain, Irritation, Amaurosis, Blurred vision, Spots in vision, Field loss, Vision loss, Dipolpia - Ears, Nose & Throat Ears, Nose & Throat: denies: Ear pain, Hearing loss, Tinnitus, Vertigo, Nasal pain, Nasal discharge, Nosebleeds, Nasal obstruction, Nasal congestion, Dentures, Sore throat, Hoarseness, Mouth lesions, Bleeding gums - Cardiovascular Cariovascular: denies: Irregular heart rate, Palpitations, Chest pain, Edema, Lightheadedness, Syncope, Exertional dyspnea, Decr. exercise tolerance - Respiratory Respiratory: denies: Cough, Sputum production, Wheezing, Snoring, Hemoptysis, Orthopnea, SOB at rest, SOB with exertion - Gastrointestinal Gastrointestinal: reports: Abdominal pain, Nausea, Vomiting. denies: Abdominal distention, Constipation, Diarrhea, Change in bowel habits, Rectal bleeding, Black stools, Bloody stools, Bile emesis, Luisito blood emesis, Coffee grounds emesis - Genitourinary Genitourinary: denies: Dysuria, Frequency, Urgency, Hematuria, Incontinence, Flank pain, Nocturia, Urethral discharge - Musculoskeletal Musculoskeletal: denies: Muscle pain, Back pain, Muscle aches, Stiffness, Limited range of motion, Muscle weakness, Gout, Joint pain - Integumentary Integumentary: denies: Rash, Pruritis, Lesions, Dryness, Lumps, Acne, Pigment changes, Nail changes - Neurological Neurological: denies: General weakness, Focal weakness, Headache, Dizziness, Numbness, Memory problems, Pre-existing deficit, Abnormal gait, Seizures, Incoordination, Slurred speech - Psychiatric Psychiatric: denies: Depression, Anxiety, Suicidal, Delusions, Hallucinations, Homicidal - Endocrine Endocrine: denies: Polyuria, Polydypsia, Polyphagia, Intolerance to cold - Hematologic/Lymphatic Hematologic/Lymphatic: denies: Anemia, Bruising, Petechiae, Blood clots, Lymphadenopathy, Bleeding tendencies Exam - Vital Signs Vital Signs: Vital Signs x48h Temp Pulse Resp BP Pulse Ox 08/04/19 09:26 66 18 109/62 100 08/04/19 07:11 36.5 C 52 L 15 175/109 H 100 - Physical Exam General Appearance: positive: No acute distress, Alert. negative: Lethargic Eyes Bilateral: positive: Normal inspection, PERRL, No lid inflammation ENT: positive: ENT inspection nml, Pharynx nml, No signs of dehydration. negative: Purulent nasal drainage, Pharyngeal erythema Neck: positive: Nml inspection, Thyroid nml, No JVD, Trachea midline. negative: Thyromegaly, Lymphadenopathy (R), Lymphadenopathy (L), Stiff neck, Tracheal deviation Respiratory: positive: Chest non-tender, No respiratory distress, Breath sounds nml. negative: Wheezes, Rales, Rhonchi Cardiovascular: positive: Regular rate & rhythm, No murmur, No gallop. negative: Irregularly irregular, Extrasystoles, Tachycardia, Bradycardia, JVD present, Systolic murmur, Diastolic murmur Peripheral Pulses: positive: 2+ Abdomen: positive: Non-tender, No organomegaly, Nml bowel sounds, No distention. negative: Tenderness, Guarding, Rebound Back: positive: Nml inspection. negative: CVA tenderness (R), CVA tenderness (L) Skin: positive: Color nml, No rash, Warm, Dry. negative: Cyanosis, Diaphoresis, Pallor Extremities: positive: Non-tender, Full ROM, Nml appearance. negative: Calf tenderness, Amaris's sign/cords Neurologic/Psychiatric: positive: Oriented x3, Motor nml, Sensation nml, Mood/affect nml. negative: Weakness, Sensory loss, Facial droop, Slurred/abnml speech, Depressed mood/affect Sepsis Event Note (H) - Evaluation Current Stage of Sepsis: Ruled out Conclusion/Plan - Problem List (1) Partial obstruction of small intestine Conclusion/Plan: pt present abdominal pain, N/V for three days, CT of abdomen reveals mildly distended proximal duodenum with possible SMA syndrome consult with GI surgeon, will followup bowel rest with NPO except meds D5 1/2 NS with 20 meq K IVF pain control encourage pt safely walk (2) Nausea & vomiting Conclusion/Plan: it is likely from partial SBO anti-emesis PRN IVF bowel rest lab monitor Qualifiers: Vomiting type: unspecified Vomiting Intractability: unspecified Qualified Code(s): R11.2 - Nausea with vomiting, unspecified (3) Abdominal pain Conclusion/Plan: it is likely from partial SBO, plan: pain control, encourage reduced usage of opiates as can, bowel rest Qualifiers: Abdominal location: right upper quadrant Qualified Code(s): R10.11 - Right upper quadrant pain (4) Full code status Conclusion/Plan: pt request full code - Lab Results Fish Bones: 08/04/19 07:30 08/04/19 07:30 Core Measures - Anticipated LOS I expect patient to be DC'd or transferred within 96 hours.: Yes - DVT/VTE - Prophylaxis VTE/DVT Device ordered at admit?: Yes VTE/DVT Prophylaxis med ordered at admit?: Yes
--- NOTE | 2019-08-04 11:55 | Ultrasound Report ---
Reason: ruq abd pain and vomiting Procedure Date: 08/04/2019 Accession Number: [id number] / [id number] Procedure: US - Abdomen Limited CPT Code: Final Report FULL RESULT: EXAM: ABDOMEN ULTRASOUND LIMITED, RUQ EXAM DATE: 08/04/2019 10:54 AM. CLINICAL HISTORY: Ruq abd pain and vomiting. COMPARISON: ABDOMEN LIMITED 04/01/2018 5:30 PM ABDOMEN/PELVIS W/ 08/04/2019 8:25 AM. TECHNIQUE: Real-time scanning was performed with static images obtained. FINDINGS: Liver: Hepatic parenchymal echotexture is mildly echogenic. No hepatic lesions. No intrahepatic ductal dilatation. Liver is not enlarged, 15.8 cm. Main portal vein flow: Hepatopetal. Gallbladder: Normal. No stones, wall thickening, or sonographic Gaytan's sign. Biliary System: CBD measures 6 mm. No intrahepatic or extrahepatic ductal dilatation. Other: Right kidney is normal in contour and echotexture measures 10.8 cm. Numerous cysts are seen within the right kidney as before the largest measuring 1.7 x 1.3 x 1.3 cm. No solid renal masses. No hydronephrosis. IMPRESSION: 1. Mild hepatic steatosis. 2. Normal gallbladder. No biliary ductal dilatation. 3. Right renal cysts. RADIA
[2019-08-04] MEDS: MORPHINE 2 MG/ML CARPUJECT IVP PRN ×6 (12:03→23:44)
[2019-08-04] MEDS: D5.45NS W/20 MEQ KCL 1,000 ML IV SCH ×2 (12:06→21:08)
[2019-08-04] MEDS: PANTOPRAZOLE 40 MG VIAL IVP SCH (13:20)
--- NOTE | 2019-08-04 13:30 | CONSULTATION NOTE ---
Referring Provider Name of Referring Provider:: Abdiel Consult Date: 08/04/19 Chief Complaint - Chief Complaint Chief Complaint: Nausea/vomiting mostly in the mornings w/gassiousness and bloating associat History of Present Illness - Admitted From Admitted From:: ED - History of Present Illness HPI Comment/Other: Patient has had these symptoms for over a year off and on. He apparently had a RUQ US w/ negative findings. No hx jaundice. No transaminase elevations. History - Past Medical History Cardiovascular: reports: None Respiratory: reports: None, Other (Smoker) Endocrine/Autoimmune: reports: None GI: reports: Ulcers : reports: Other (Renal cysts) MRSA Hx?: No - Family & Social History Family History: Mother: Alive and Well, Father: Family History Comment/Other: pt report his mother and grandmother from his father side had the similar chronic abdominal pain issue but he is unknown exact diagnosis. his father at his fourty ago, pt is unknown his father medical hx. 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 pt denies alcohol and drug issue. - Substance History Use: Uses substance without health or social issues: Tobacco - POLST Patient has POLST: No POLST Status: Full Code Meds/Allgy - Home Medications Home Medications: Ambulatory Orders Medication Instructions Recorded Confirmed Hydrocodone/Acetaminophen 1 - 2 each PO Q6H PRN #14 tablet 06/04/19 [Hydrocodon-Acetaminophen 5-325] Promethazine [Phenergan] 25 mg PO Q6H PRN #10 tab 06/04/19 raNITIdine [Zantac] 150 mg PO BID #30 tablet 06/04/19 - Allergies Allergies/Adverse Reactions: Allergies Allergy/AdvReac Type Severity Reaction Status Date / Time No Known Drug Allergies Allergy Verified 06/04/19 08:45 Review of Systems - Constitutional Constitutional: reports: Poor appetite - Gastrointestinal Gastrointestinal: reports: Abdominal pain, Diarrhea, Nausea, Vomiting, Bloating Exam - Vital Signs Reviewed Vital Signs: Yes Vital Signs: Vital Signs x48h Temp Pulse Resp BP Pulse Ox 08/04/19 10:34 55 L 18 123/74 99 08/04/19 09:26 66 18 109/62 100 08/04/19 07:11 36.5 C 52 L 15 175/109 H 100 - Physical Exam General Appearance: positive: No acute distress Eyes Bilateral: positive: Normal inspection Neck: positive: Nml inspection Respiratory: positive: No respiratory distress, Breath sounds nml Cardiovascular: positive: Regular rate & rhythm Abdomen: positive: Tenderness (RUQ tender. No rebound) Conclusion and Plan - Lab Results Laboratory Results 08/04/19 10:18: Urine Color DARK YELLOW, Urine Clarity CLEAR, Urine pH 7.0, Ur Specific [place] <=1.005, Urine Protein NEGATIVE, Urine Glucose (UA) NEGATIVE, Urine Ketones NEGATIVE, Urine Occult Blood NEGATIVE, Urine Nitrite NEGATIVE, Urine Bilirubin NEGATIVE, Urine Urobilinogen 0.2 (NORMAL), Ur Leukocyte Esterase NEGATIVE, Ur Microscopic Review NOT INDICATED, Urine Culture Comments NOT INDICATED 08/04/19 07:30: Sodium 135, Potassium 3.6, Chloride 101, Carbon Dioxide 24, Anion Gap 10.0, BUN 18, Creatinine 0.7, Estimated GFR (MDRD) 128, Glucose 135 H, Calcium 9.1, Total Bilirubin 1.1 H, AST 21, ALT 20, Alkaline Phosphatase 51, Total Protein 7.5, Albumin 5.0, Globulin 2.5, Albumin/Globulin Ratio 2.0, Lipase 32 08/04/19 07:30: WBC 9.9, RBC 5.11, Hgb 15.3, Hct 45.8, MCV 89.6, MCH 29.9, MCHC 33.4, RDW 12.3, Plt Count 248, MPV 9.1, Neut # (Auto) 8.0 H, Lymph # (Auto) 1.0 L, [place] # (Auto) 0.7, Eos # (Auto) 0.0, Baso # (Auto) 0.0, Absolute Nucleated RBC 0.00, Nucleated RBC % 0.0 - Diagnostic Imaging Results Diagnostic Imaging Results: positive: Final report reviewed - Diagnosis Diagnosis: Possible chronic cholecystitis - Plan Plan: GB US possibly followed by HIDA scan if not gallstones/wall thickening or pericholecystic fluid. Further care as per hospitalist.
[2019-08-04 13:47] LABS: MUDS CUTOFF CONCENTRATIONS CUTOFF CONC BELOW:
[2019-08-04 14:03] LABS: AMPHETAMINE SCREEN,URINE NEGATIVE (NEGATIVE); BENZODIAZEPINES SCREEN, URINE NEGATIVE (NEGATIVE); COCAINE SCREEN URINE NEGATIVE (NEGATIVE); METHADONE SCREEN, URINE NEGATIVE (NEGATIVE); METHAMPHETAMINES SCREEN, URINE NEGATIVE (NEGATIVE); OPIATE SCREEN, URINE POSITIVE (NEGATIVE); OXYCODONE SCREEN, URINE POSITIVE (NEGATIVE); PROPOXYPHENE SCREEN, URINE NEGATIVE (NEGATIVE); TRICYCLIC ANTIDEPRESSANT,URINE NEGATIVE (NEGATIVE)
[2019-08-04] MEDS: NICOTINE 14 MG PATCH TOP SCH (16:19)
[2019-08-04] MEDS: SODIUM CHLORIDE FLUSH 0.9% 10 ML SYRINGE IVP SCH (16:20)
[2019-08-04] MEDS: ACETAMINOPHEN 325 MG TABLET PO PRN (18:36)
[2019-08-05] MEDS: MORPHINE 2 MG/ML CARPUJECT IVP PRN ×5 (02:05→15:10)
[2019-08-05 05:51] LABS: BASOPHILS % (AUTO) 0.7 %; EOSINOPHILS # (AUTO) 0.1 10^3/uL (0.0-0.7); EOSINOPHILS % (AUTO) 1.7 %; HGB - HEMOGLOBIN 12.9 g/dL (14.0-18.0); LYMPHOCYTES # (AUTO) 1.9 10^3/uL (1.5-3.5); LYMPHOCYTES % (AUTO) 34.1 %; MEAN CORPUSCULAR HEMOGLOBIN 31.2 pg (27.0-31.0); MEAN CORPUSCULAR HGB CONC 33.6 g/dL (32.0-36.0); MEAN CORPUSCULAR VOLUME 92.8 fL (80.0-94.0); MEAN PLATELET VOLUME 9.2 fL (7.4-11.4); MONOCYTES # (AUTO) 0.7 10^3/uL (0.0-1.0); NEUTROPHILS # (AUTO) 2.7 10^3/uL (1.5-6.6); NEUTROPHILS % (AUTO) 50.1 %; PLT - PLATELET COUNT 196 10^3/uL (130-450); RED BLOOD COUNT 4.14 10^6/uL (4.70-6.10); RED CELL DISTRIBUTION WIDTH 12.3 % (12.0-15.0); WHITE BLOOD COUNT 5.5 x10^3/uL (4.8-10.8)
[2019-08-05 06:03] LABS: CALCIUM 8.4 mg/dL (8.5-10.3); CREATININE 0.7 mg/dL (0.6-1.2)
[2019-08-05] MEDS: SODIUM CHLORIDE FLUSH 0.9% 10 ML SYRINGE IVP SCH ×3 (06:56→17:19)
[2019-08-05] MEDS: D5.45NS W/20 MEQ KCL 1,000 ML IV SCH (07:38)
[2019-08-05] MEDS: PANTOPRAZOLE 40 MG VIAL IVP SCH (07:39)
[2019-08-05] MEDS: NICOTINE 14 MG PATCH TOP SCH (07:45)
[2019-08-05] MEDS ORDERED: SINCALIDE 5 MCG VIAL ONE (14:06)
[2019-08-05] MEDS: SODIUM CHLORIDE FLUSH 0.9% 10 ML SYRINGE IVP PRN (15:11)
[2019-08-05] MEDS ORDERED: SINCALIDE 1.1 MCG in SODIUM CHLORIDE 0.9% 50 ML IV ONE (15:31)
--- NOTE | 2019-08-05 15:50 | PROVIDER PROGRESS NOTE ---
Assessment/Plan - Problem List (1) Partial obstruction of small intestine Assessment/Plan: HIDA scan is still pending. pt complain right quadrant pain and radiate to his right chest. but US reveals unremarkable. followup surgeon for consultation pain control NPO after midnight. pt strong request to have diet at night. (2) Nausea & vomiting resolved (3) Abdominal pain pt still complain right upper quadrant pain HIDA scan is pending, followup surgeon consultation pain control (4)right chest pain CXR is unremarkable. D-dimer is negative. troponin is pending. it seems from pt's radiated pain from right upper quadrant. pt has no cardiaorespiratory distress. pain control (2) Nausea & vomiting Qualifiers: Vomiting type: unspecified Vomiting Intractability: unspecified Qualified Code(s): R11.2 - Nausea with vomiting, unspecified (3) Abdominal pain Qualifiers: Abdominal location: right upper quadrant Qualified Code(s): R10.11 - Right upper quadrant pain - Current Meds Current Meds: Current Medications Generic Name Dose Route Start Last Admin Trade Name Freq PRN Reason Stop Dose Admin Acetaminophen 650 mg 08/04/19 10:23 08/04/19 18:36 Tylenol PO 650 mg Q4HR PRN Administration Pain 1 to 4 Potassium Chloride/Dextrose/Sod Cl 1,000 mls @ 100 mls/hr 08/04/19 11:27 08/05/19 07:38 D5.45ns W/20 Meq Kcl IV 100 mls/hr .Q10H DONNIE Administration Sincalide 1.1 mcg/ Sodium 50 mls @ 40 mls/hr 08/05/19 15:31 08/05/19 15:31 Chloride IV 08/05/19 16:45 40 mls/hr ONCE ONE Administration Morphine Sulfate 2 mg 08/04/19 10:23 08/05/19 15:10 Morphine (Carpuject) IVP 2 mg Q2HR PRN Administration Pain 8 to 10 Nicotine 1 patch 08/04/19 15:39 08/05/19 07:45 Nicoderm TOP 1 patch DAILY DONNIE Administration Pantoprazole Sodium 40 mg 08/04/19 11:00 08/05/19 07:39 Protonix IVP 40 mg QDAC DONNIE Administration Sodium Chloride 10 ml 08/04/19 10:23 08/05/19 15:11 Normal Saline Flush 0.9% IVP 10 ml PRN PRN Administration NEEDED PER PROVIDER ORDERS Sodium Chloride 10 ml 08/04/19 17:00 08/05/19 07:46 Normal Saline Flush 0.9% IVP Not Given 0100,0900,1700 DONNIE - Lab Result Fish Bone Diagrams: 08/05/19 05:40 08/05/19 05:40 - Additional Planning My Orders: My Active Orders 08/04/19 15:39 Nicotine 14 mg Patch [Nicoderm] 1 patch TOP DAILY 08/04/19 17:00 Sodium Chloride Flush 0.9% [Normal Saline Flush 0.9%] 10 ml IVP 0100,0900,1700 08/05/19 08:02 Hepatobiliary HIDA w/o Rx [NM] Routine 08/06/19 05:00 BMP - BASIC METABOLIC PANEL [CHEM] DAILYLAB CBC - COMP BLD CT W/AUTO DIFF [HEME] DAILYLAB 08/07/19 05:00 BMP - BASIC METABOLIC PANEL [CHEM] DAILYLAB CBC - COMP BLD CT W/AUTO DIFF [HEME] DAILYLAB 08/08/19 05:00 BMP - BASIC METABOLIC PANEL [CHEM] DAILYLAB CBC - COMP BLD CT W/AUTO DIFF [HEME] DAILYLAB Subjective - Subjective Patient Reports: Chest Pain (right upper quadrant pain and right chest pain) Objective Vital Signs: Vital Signs - 24 hr 08/04/19 08/04/19 08/04/19 16:00 20:38 23:35 Temperature 36.8 C 37.0 C 36.7 C Heart Rate Heart Rate [ 53 L 51 L 55 L Brachial] Respiratory 20 16 20 Rate Blood Pressure 128/79 115/74 137/76 H [Left Brachial artery] O2 Saturation 99 99 99 08/05/19 08/05/19 08/05/19 05:00 07:30 07:54 Temperature 36.6 C 36.6 C 36.6 C Heart Rate 52 L Heart Rate [ 51 L 52 L Brachial] Respiratory 18 18 18 Rate Blood Pressure 131/68 H 120/58 L [Left Brachial artery] O2 Saturation 99 99 99 08/05/19 11:29 Temperature 36.6 C Heart Rate Heart Rate [ 57 L Brachial] Respiratory 18 Rate Blood Pressure 126/78 [Left Brachial artery] O2 Saturation 99 Oxygen O2 Source Room air I&O (Last 24 Hrs): Intake and Output Totals x24h 08/03/19 08/04/19 08/05/19 23:59 23:59 23:59 Intake Total 2503.333 1000 Output Total 300 950 Balance 2203.333 50 General: Alert, Oriented x3, Mild distress HEENT: Atraumatic Neck: Supple Lymphatic: no adenopathy Neuro: Alert, Non Focal, Oriented Times 3 Cardiovascular: Regular rate, Normal S1, Normal S2 Respiratory: Chest non-tender, No respiratory distress, Breath sounds nml Abdomen: Normal bowel sounds, Soft, No tenderness, No hepatospenomegaly, No masses - Results Results: Laboratory Results WBC 5.5 x10^3/uL (4.8-10.8) 08/05/19 05:40 RBC 4.14 10^6/uL (4.70-6.10) L 08/05/19 05:40 Hgb 12.9 g/dL (14.0-18.0) L 08/05/19 05:40 Hct 38.4 % (42.0-52.0) L 08/05/19 05:40 MCV 92.8 fL (80.0-94.0) 08/05/19 05:40 MCH 31.2 pg (27.0-31.0) H 08/05/19 05:40 MCHC 33.6 g/dL (32.0-36.0) 08/05/19 05:40 RDW 12.3 % (12.0-15.0) 08/05/19 05:40 Plt Count 196 10^3/uL (130-450) 08/05/19 05:40 MPV 9.2 fL (7.4-11.4) 08/05/19 05:40 Neut # (Auto) 2.7 10^3/uL (1.5-6.6) 08/05/19 05:40 Lymph # (Auto) 1.9 10^3/uL (1.5-3.5) 08/05/19 05:40 [place] # (Auto) 0.7 10^3/uL (0.0-1.0) 08/05/19 05:40 Eos # (Auto) 0.1 10^3/uL (0.0-0.7) 08/05/19 05:40 Baso # (Auto) 0.0 10^3/uL (0.0-0.1) 08/05/19 05:40 Absolute Nucleated RBC 0.00 x10^3/uL 08/05/19 05:40 Nucleated RBC % 0.0 /100WBC 08/05/19 05:40 Sodium 139 mmol/L (135-145) 08/05/19 05:40 Potassium 4.3 mmol/L (3.5-5.0) 08/05/19 05:40 Chloride 108 mmol/L (101-111) 08/05/19 05:40 Carbon Dioxide 25 mmol/L (21-32) 08/05/19 05:40 Anion Gap 6.0 (6-13) 08/05/19 05:40 BUN 10 mg/dL (6-20) 08/05/19 05:40 Creatinine 0.7 mg/dL (0.6-1.2) 08/05/19 05:40 Estimated GFR (MDRD) 128 (>89) 08/05/19 05:40 Glucose 120 mg/dL (70-100) H 08/05/19 05:40 Calcium 8.4 mg/dL (8.5-10.3) L 08/05/19 05:40 Magnesium 2.0 mg/dL (1.7-2.8) 08/05/19 05:40 Total Bilirubin 1.1 mg/dL (0.2-1.0) H 08/04/19 07:30 AST 21 IU/L (10-42) 08/04/19 07:30 ALT 20 IU/L (10-60) 08/04/19 07:30 Alkaline Phosphatase 51 IU/L (42-121) 08/04/19 07:30 Total Protein 7.5 g/dL (6.7-8.2) 08/04/19 07:30 Albumin 5.0 g/dL (3.2-5.5) 08/04/19 07:30 Globulin 2.5 g/dL (2.1-4.2) 08/04/19 07:30 Albumin/Globulin Ratio 2.0 (1.0-2.2) 08/04/19 07:30 Lipase 32 U/L (22-51) 08/04/19 07:30 TSH 2.53 uIU/mL (0.34-5.60) 08/05/19 05:40 Urine Color DARK YELLOW 08/04/19 10:18 Urine Clarity CLEAR (CLEAR) 08/04/19 10:18 Urine pH 7.0 PH (5.0-7.5) 08/04/19 10:18 Ur Specific [place] <=1.005 (1.002-1.030) 08/04/19 10:18 Urine Protein NEGATIVE mg/dL (NEGATIVE) 08/04/19 10:18 Urine Glucose (UA) NEGATIVE mg/dL (NEGATIVE) 08/04/19 10:18 Urine Ketones NEGATIVE mg/dL (NEGATIVE) 08/04/19 10:18 Urine Occult Blood NEGATIVE (NEGATIVE) 08/04/19 10:18 Urine Nitrite NEGATIVE (NEGATIVE) 08/04/19 10:18 Urine Bilirubin NEGATIVE (NEGATIVE) 08/04/19 10:18 Urine Urobilinogen 0.2 (NORMAL) E.U./dL (NORMAL) 08/04/19 10:18 Ur Leukocyte Esterase NEGATIVE (NEGATIVE) 08/04/19 10:18 Ur Microscopic Review NOT INDICATED 08/04/19 10:18 Urine Culture Comments NOT INDICATED 08/04/19 10:18 Urine Opiates Screen POSITIVE (NEGATIVE) H 08/04/19 13:45 Ur Oxycodone Screen POSITIVE (NEGATIVE) H 08/04/19 13:45 Urine Methadone Screen NEGATIVE (NEGATIVE) 08/04/19 13:45 Ur Propoxyphene Screen NEGATIVE (NEGATIVE) 08/04/19 13:45 Ur Barbiturates Screen NEGATIVE (NEGATIVE) 08/04/19 13:45 Ur Tricyclics Screen NEGATIVE (NEGATIVE) 08/04/19 13:45 Ur Phencyclidine Scrn NEGATIVE (NEGATIVE) 08/04/19 13:45 Ur Amphetamine Screen NEGATIVE (NEGATIVE) 08/04/19 13:45 U Methamphetamines Scrn NEGATIVE (NEGATIVE) 08/04/19 13:45 U Benzodiazepines Scrn NEGATIVE (NEGATIVE) 08/04/19 13:45 Urine Cocaine Screen NEGATIVE (NEGATIVE) 08/04/19 13:45 U Cannabinoids Screen POSITIVE (NEGATIVE) H 08/04/19 13:45 Sepsis Event Note (H) - Evaluation Current Stage of Sepsis: Ruled out ABX Reporting Has patient been on IV antibiotics over the past 48 hours?: No Current Medications - Current Medications Current Medications: Active Medications Acetaminophen (Tylenol) 650 mg PO Q4HR PRN PRN Reason: Pain 1 to 4 Last Admin: 08/04/19 18:36 Dose: 650 mg Hydromorphone HCl (Dilaudid Inj Syringe) 0.5 mg IVP Q2H PRN PRN Reason: PAIN Last Admin: 08/05/19 16:33 Dose: 0.5 mg Dextrose/Sodium Chloride (D5ns) 1,000 mls @ 100 mls/hr IV .Q10H [facility] Nicotine (Nicoderm) 1 patch TOP DAILY [facility] Last Admin: 08/05/19 07:45 Dose: 1 patch Ondansetron HCl (Zofran Inj) 4 mg IVP Q6HR PRN PRN Reason: Nausea / Vomiting Oxycodone HCl (Roxicodone) 5 mg PO Q4HR PRN PRN Reason: PAIN Last Admin: 08/05/19 16:34 Dose: 5 mg Pantoprazole Sodium (Protonix) 40 mg IVP QDAC [facility] Last Admin: 08/05/19 07:39 Dose: 40 mg Sodium Chloride (Normal Saline Flush 0.9%) 10 ml IVP PRN PRN PRN Reason: NEEDED PER PROVIDER ORDERS Last Admin: 08/05/19 15:11 Dose: 10 ml Sodium Chloride (Normal Saline Flush 0.9%) 10 ml IVP 0100,0900,1700 [facility] Last Admin: 08/05/19 17:19 Dose: Not Given
[2019-08-05] MEDS: HYDROmorphone 0.5 MG/0.5 ML SYRINGE IVP PRN ×3 (16:33→21:39)
[2019-08-05] MEDS: oxyCODONE 5 MG TABLET PO PRN ×2 (16:34→20:38)
--- NOTE | 2019-08-05 16:55 | XRAY Report ---
Reason: right chest pain Procedure Date: 08/05/2019 Accession Number: [id number] / [id number] Procedure: XR - Chest 1 View X-Ray CPT Code: 41619 Final Report FULL RESULT: EXAM: CHEST RADIOGRAPHY EXAM DATE: 08/05/2019 04:30 PM. CLINICAL HISTORY: Right chest pain. COMPARISON: 06/04/2019. TECHNIQUE: 1 view. FINDINGS: Lungs/Pleura: No focal opacities or vascular congestion. No pleural effusion or pneumothorax. Mediastinum: Cardiomediastinal silhouette appears unremarkable. Bones: No acute osseous findings identified. IMPRESSION: 1. No acute cardiopulmonary findings or change. RADIA
[2019-08-05] MEDS: DEXTROSE 5%-0.9% NACL 1,000 ML IV SCH (19:33)
[2019-08-05] MEDS: DOCUSATE SODIUM 250 MG CAPSULE PO SCH (20:45)
[2019-08-05] MEDS: POLYETHYLENE GLYCOL 3350 17 GM PACKET PO SCH (20:46)
[2019-08-06] MEDS: ACETAMINOPHEN 325 MG TABLET PO PRN (00:03)
[2019-08-06] MEDS: HYDROmorphone 0.5 MG/0.5 ML SYRINGE IVP PRN ×5 (00:03→13:41)
[2019-08-06] MEDS: SODIUM CHLORIDE FLUSH 0.9% 10 ML SYRINGE IVP SCH ×2 (00:05→08:55)
[2019-08-06] MEDS: DEXTROSE 5%-0.9% NACL 1,000 ML IV SCH ×2 (04:37→14:55)
[2019-08-06 05:41] LABS: BASOPHILS % (AUTO) 0.7 %; EOSINOPHILS # (AUTO) 0.1 10^3/uL (0.0-0.7); EOSINOPHILS % (AUTO) 2.4 %; HGB - HEMOGLOBIN 12.3 g/dL (14.0-18.0); LYMPHOCYTES # (AUTO) 1.6 10^3/uL (1.5-3.5); MEAN CORPUSCULAR HEMOGLOBIN 31.1 pg (27.0-31.0); MEAN CORPUSCULAR HGB CONC 33.7 g/dL (32.0-36.0); MEAN CORPUSCULAR VOLUME 92.2 fL (80.0-94.0); MEAN PLATELET VOLUME 9.1 fL (7.4-11.4); MONOCYTES # (AUTO) 0.7 10^3/uL (0.0-1.0); MONOCYTES % (AUTO) 12.1 %; NEUTROPHILS # (AUTO) 2.9 10^3/uL (1.5-6.6); NEUTROPHILS % (AUTO) 54.4 %; PLT - PLATELET COUNT 192 10^3/uL (130-450); RED BLOOD COUNT 3.96 10^6/uL (4.70-6.10); RED CELL DISTRIBUTION WIDTH 11.8 % (12.0-15.0); WHITE BLOOD COUNT 5.4 x10^3/uL (4.8-10.8)
[2019-08-06 05:48] LABS: CALCIUM 8.2 mg/dL (8.5-10.3); CREATININE 0.7 mg/dL (0.6-1.2)
[2019-08-06] MEDS: PANTOPRAZOLE 40 MG VIAL IVP SCH (07:17)
[2019-08-06] MEDS: SODIUM CHLORIDE FLUSH 0.9% 10 ML SYRINGE IVP PRN (07:17)
[2019-08-06 08:17] LABS: INR 1.1 (0.8-1.2); PT - PROTHROMBIN TIME 12.8 secs (9.9-12.6)
--- NOTE | 2019-08-06 08:19 | Nuclear Medicine Report ---
Reason: suspect biliary dyskinesia Procedure Date: 08/05/2019 Accession Number: [id number] / [id number] Procedure: NM - Hepatobiliary HIDA w/o Rx CPT Code: Final Report FULL RESULT: EXAM: HEPATOBILIARY SCAN WITH CCK/KINEVAC ADMINISTRATION EXAM DATE: 08/05/2019 03:25 PM. CLINICAL HISTORY: Suspect biliary dyskinesia. Abdominal pain. COMPARISON: ABDOMEN LIMITED 08/04/2019 10:54 AM. ABDOMEN/PELVIS W/ 08/04/2019 8:25 AM. TECHNIQUE: Following the intravenous administration of 4.8 mCi of Tc99m Mebrofenin, a hepatobiliary scan was done centered on the liver and gallbladder in multiple sequential images and projections. Following the intravenous administration of 1.09 mcg of CCK/ Kinevac over the course of approximately 60 minutes, dynamic imaging was done and the gallbladder ejection fraction was calculated. FINDINGS: Normal extraction of tracer from the blood pool indicating normal hepatocellular function. The liver size and shape is grossly within normal limits. There is activity visualized within the bilateral, gallbladder, and small bowel during the first hour. With CCK administration, the gallbladder demonstrates an effective contraction. The gallbladder ejection fraction is calculated to be 47%, well above the lower limit of normal of 38% for a 60-minute injection. The patient did not report symptoms after CCK administration. No evidence of enteric reflux into the stomach. No significant collection of tracer remaining in the common bile duct by the end of the study. IMPRESSION: 1. Patent cystic duct. 2. Patent common bile duct. 3. Negative for acute or chronic cholecystitis. 4. No enterogastric bile reflux. 5. Gallbladder ejection fraction of 47%. RADIA
[2019-08-06] MEDS: NICOTINE 14 MG PATCH TOP SCH (08:54)
--- NOTE | 2019-08-06 10:07 | XRAY Report ---
Reason: sbo Procedure Date: 08/06/2019 Accession Number: [id number] / [id number] Procedure: XR - Abdomen 2 View X-Ray CPT Code: 00379 Final Report FULL RESULT: EXAM: ABDOMEN RADIOGRAPHY EXAM DATE: 08/06/2019 09:25 AM HISTORY: Sbo. COMPARISON: ABDOMEN/PELVIS W/ 08/04/2019 8:25 AM TECHNIQUE: AP and Upright two view exam. FINDINGS: Unremarkable bowel gas pattern. Small amount of stool in the colon. No free air No concerning calcification. No organomegaly. Unremarkable skeleton. Other: None. IMPRESSION: Normal abdomen radiography.
[2019-08-06 12:57] VITALS: BP 127/68
[2019-08-06] MEDS: POLYETHYLENE GLYCOL 3350 17 GM PACKET PO SCH (13:40)
[2019-08-06] MEDS: DOCUSATE SODIUM 250 MG CAPSULE PO SCH (13:40)
--- NOTE | 2019-08-06 14:21 | PROVIDER PROGRESS NOTE ---
Subjective - General Admit Date: 08/04/19 - Review of Systems General: positive: No symptoms, Appetite (Symptoms seeemed to resolve w/BM He is eating well.) Objective - Patient Data Reviewed Vital Signs: Yes Vital Signs: Vital Signs x48h Temp Pulse Resp BP Pulse Ox 08/06/19 12:56 36.6 C 51 L 18 127/68 98 08/06/19 08:07 36.7 C 55 L 18 130/72 100 Weight: Weight 08/04/19 08/05/19 08/06/19 23:59 23:59 23:59 Weight (kg) 53 kg Intake & Output: Intake and Output Totals x24h 08/04/19 08/05/19 08/06/19 23:59 23:59 23:59 Intake Total 2503.333 2270 1766.667 Output Total 300 950 Balance 2203.333 1320 1766.667 - Lab Results Lab Results: 08/06/19 05:15 08/06/19 05:15 Other Lab Results: Lab Results x24hrs 08/06/19 08/06/19 08/06/19 Range/Units 08:05 05:15 05:15 WBC 5.4 (4.8-10.8) x10^3/uL RBC 3.96 L (4.70-6.10) 10^6/uL Hgb 12.3 L (14.0-18.0) g/dL Hct 36.5 L (42.0-52.0) % MCV 92.2 (80.0-94.0) fL MCH 31.1 H (27.0-31.0) pg MCHC 33.7 (32.0-36.0) g/dL RDW 11.8 L (12.0-15.0) % Plt Count 192 (130-450) 10^3/uL MPV 9.1 (7.4-11.4) fL Neut # (Auto) 2.9 (1.5-6.6) 10^3/uL Lymph # (Auto) 1.6 (1.5-3.5) 10^3/uL [place] # (Auto) 0.7 (0.0-1.0) 10^3/uL Eos # (Auto) 0.1 (0.0-0.7) 10^3/uL Baso # (Auto) 0.0 (0.0-0.1) 10^3/uL Absolute Nucleated RBC 0.00 x10^3/uL Nucleated RBC % 0.0 /100WBC PT 12.8 H (9.9-12.6) secs INR 1.1 (0.8-1.2) D-Dimer (200.0-255.0) ng/mL Sodium 140 (135-145) mmol/L Potassium 3.8 (3.5-5.0) mmol/L Chloride 109 (101-111) mmol/L Carbon Dioxide 25 (21-32) mmol/L Anion Gap 6.0 (6-13) BUN 17 (6-20) mg/dL Creatinine 0.7 (0.6-1.2) mg/dL Estimated GFR (MDRD) 128 (>89) Glucose 115 H (70-100) mg/dL Calcium 8.2 L (8.5-10.3) mg/dL Troponin I High Sens (2.3-19.7) ng/L 08/05/19 08/05/19 Range/Units 18:46 16:23 WBC (4.8-10.8) x10^3/uL RBC (4.70-6.10) 10^6/uL Hgb (14.0-18.0) g/dL Hct (42.0-52.0) % MCV (80.0-94.0) fL MCH (27.0-31.0) pg MCHC (32.0-36.0) g/dL RDW (12.0-15.0) % Plt Count (130-450) 10^3/uL MPV (7.4-11.4) fL Neut # (Auto) (1.5-6.6) 10^3/uL Lymph # (Auto) (1.5-3.5) 10^3/uL [place] # (Auto) (0.0-1.0) 10^3/uL Eos # (Auto) (0.0-0.7) 10^3/uL Baso # (Auto) (0.0-0.1) 10^3/uL Absolute Nucleated RBC x10^3/uL Nucleated RBC % /100WBC PT (9.9-12.6) secs INR (0.8-1.2) D-Dimer < 200.0 L (200.0-255.0) ng/mL Sodium (135-145) mmol/L Potassium (3.5-5.0) mmol/L Chloride (101-111) mmol/L Carbon Dioxide (21-32) mmol/L Anion Gap (6-13) BUN (6-20) mg/dL Creatinine (0.6-1.2) mg/dL Estimated GFR (MDRD) (>89) Glucose (70-100) mg/dL Calcium (8.5-10.3) mg/dL Troponin I High Sens < 2.3 L (2.3-19.7) ng/L - Imaging Results Radiology Imaging: positive: Final report received (HIDA negative. GB/US negative) - Current Medications Current Medications: Current Medications Generic Name Dose Route Start Last Admin Trade Name Freq PRN Reason Stop Dose Admin Acetaminophen 650 mg 08/04/19 10:23 08/06/19 00:03 Tylenol PO 650 mg Q4HR PRN Administration Pain 1 to 4 Docusate Sodium 250 - 500 mg 08/05/19 19:19 08/06/19 13:40 Colace 250mg Capsule PO 250 mg DAILY DONNIE Administration Hydromorphone HCl 0.5 mg 08/05/19 15:53 08/06/19 13:41 Dilaudid Inj Syringe IVP 0.5 mg Q2H PRN Administration PAIN Dextrose/Sodium Chloride 1,000 mls @ 100 mls/hr 08/05/19 18:00 08/06/19 04:37 D5ns IV 100 mls/hr .Q10H DONNIE Administration Nicotine 1 patch 08/04/19 15:39 08/06/19 08:54 Nicoderm TOP 1 patch DAILY DONNIE Administration Oxycodone HCl 5 mg 08/05/19 15:54 08/05/19 20:38 Roxicodone PO 5 mg Q4HR PRN Administration PAIN Pantoprazole Sodium 40 mg 08/04/19 11:00 08/06/19 07:17 Protonix IVP 40 mg QDAC DONNIE Administration Polyethylene Glycol 17 gm 08/05/19 19:20 08/06/19 13:40 Miralax PO 17 gm DAILY DONNIE Administration Sodium Chloride 10 ml 08/04/19 10:23 08/06/19 07:17 Normal Saline Flush 0.9% IVP 10 ml PRN PRN Administration NEEDED PER PROVIDER ORDERS Sodium Chloride 10 ml 08/04/19 17:00 08/06/19 08:55 Normal Saline Flush 0.9% IVP 10 ml 0100,0900,1700 [facility] Administration - Physical Exam General Appearance: positive: No acute distress Eyes Bilateral: positive: Normal inspection Abdomen: positive: Non-tender ABX Reporting Has patient been on IV antibiotics over the past 48 hours?: No Impression/Plan - Problem List Problem List: RUQ abd / R chest pain intermittantly for several months. Has basically resolved w/BM. His appetite is good. Dchhg as per hospitalist Recommmend eating more slowly and increasing water intake.
--- NOTE | 2019-08-06 14:54 | Discharge Plan ---
Discharge Plan Problem Reviewed?: Yes Disposition: Home, Self Care Condition: Stable Prescriptions: oxyCODONE [Roxicodone] 5 mg PO Q4HR PRN #20 tablet PRN Reason: Pain Docusate Sodium 250Mg Capsule [Colace 250Mg Capsule] 250 - 500 mg PO DAILY PRN #10 capsule PRN Reason: Constipation Nicotine 14 mg Patch [Nicoderm] 1 patch TOP DAILY PRN #10 patch PRN Reason: cessation of cigarett smoking Ondansetron HCl [Zofran] 4 mg PO QID PRN #15 tablet PRN Reason: Nausea / Vomiting Diet: Regular Activity Restrictions: Activity as Tolerated Shower Restrictions: No (fall precaution) Instruction Topics: Oxycodone tablets or capsules, Docusate capsules Health Concerns: partial small bowel obstruction, malnourished Plan of Treatment: you tolerate regular diet. you have no nausea, vomiting or abdominal pain. you had bowel movement. Image study reveals normal abdominal radiography. GI surgeon agreed d/c you as well. you may followup your PCP, and x ray technologist as out-pt as needed. Mix Technician consulted with you for your gaining weight, please followup instruction, change your eating habits and gain your weight. Care Goals: stabilization and improvement of your medical condition Assessment: discussed with you all studies in hospital and the care plan, you agree. Additional Instructions or Follow Up instructions: you may followup your PCP in 1-2 weeks, may followup x ray technologist as out- pt. Should your symptoms return or worsen, you may present ER or call 911 for help. No Smoking: If you smoke, Please STOP! Call for help.
--- NOTE | 2019-08-06 15:09 | DISCHARGE SUMMARY ---
"Discharge Summary Admit Date: 08/04/19 Discharge Date: 08/06/19 Discharging Provider: BRIDGES Condition at Discharge: Stable Discharge Disposition: 01 Home, Self Care Discharge Facility Name: home - DIAGNOSES Admission Diagnoses: (1) Partial obstruction of small intestine (2) Nausea & vomiting (3) Abdominal pain Discharge Diagnoses with Status of Each Condition: (1) Partial obstruction of small intestine resolved. Xray of abdomen reveals normal abdominal radiography. pt tolerate regular diet. pt have no nausea, vomiting or abdominal pain. pt had bowel movement. Image study reveals normal abdominal radiography. GI surgeon agreed d/c you as well. pt is prescribed PRN meds of Zofran, short term of pain meds Oxycodon, docusate, Nicotine Patch (2) Nausea & vomiting resolved (3) Abdominal pain resolved (4)right chest pain resolved (5) malnourished pt has dorr operator consulted. advise pt change eating habits, increase nutrition and increase his weight. - HPI History of Present Illness: Mr. Arauz is a 33-yrs-old male without significant medical hx, who present ER complain of nausea, vomiting and abdominal pain. pt report since beginning from this Friday, he continue to have nausea and vomiting. he report acute on chronic upper gastric pain. His last bowel movement was this week Friday morning. He denies fever, chill, hematemesis, chest pain, shortness of breath. 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 GI surgeon was consulted. pt's route lab test in ER was unremarkable otherwise pt is hemodynamically stable. pt is admitted for above medical reason. - CONSULTS | PROCEDURES Consultations: Dr. Gillis Procedures: no procedure - HOSPITAL COURSE Hospital Course: pt was admitted for nausea, vomiting and abdominal pain. CT of abdomen suggest SMA syndrome. Gi surgeon was consulted for pt. after bowel rest, IVF, and ambulation, finally pt tolerate regular diet. pt have no nausea, vomiting or abdominal pain. pt had bowel movement. Image study reveals normal abdominal radiography. GI surgeon agreed d/c you. the detail hospital course is as the below 1) Partial obstruction of small intestine resolved. Xray of abdomen reveals normal abdominal radiography. pt tolerate regular diet. pt have no nausea, vomiting or abdominal pain. pt had bowel movement. Image study reveals normal abdominal radiography. GI surgeon agreed d/c you as well. pt is prescribed PRN meds of Zofran, short term of pain meds Oxycodon, docusate, Nicotine Patch (2) Nausea & vomiting resolved (3) Abdominal pain resolved (4)right chest pain resolved (5) malnourished pt has dorr operator consulted. advise pt change eating habits, increase nutrition and increase his weight. - ALLERGIES Allergies/Adverse Reactions: Allergies Allergy/AdvReac Type Severity Reaction Status Date / Time No Known Drug Allergies Allergy Verified 06/04/19 08:45 - MEDICATIONS Home Medications: Ambulatory Orders Medication Instructions Recorded Confirmed Acetaminophen 325 - 650 mg PO Q6H PRN 08/06/19 08/06/19 Docusate Sodium 250Mg Capsule 250 - 500 mg PO DAILY PRN #10 08/06/19 [Colace 250Mg Capsule] capsule Nicotine 14 mg Patch [Nicoderm] 1 patch TOP DAILY PRN #10 patch 08/06/19 Ondansetron HCl [Zofran] 4 mg PO QID PRN #15 tablet 08/06/19 oxyCODONE [Roxicodone] 5 mg PO Q4HR PRN #20 tablet 08/06/19 - PHYSICAL EXAM AT DISCHARGE General Appearance: positive: No acute distress, Alert. negative: Lethargic Eyes Bilateral: positive: Normal inspection, PERRL, No lid inflammation, Conjunctivae nml ENT: positive: ENT inspection nml, Pharynx nml, No signs of dehydration. negative: Purulent nasal drainage Neck: positive: Nml inspection, Thyroid nml, No JVD, Trachea midline. negative: Thyromegaly, Lymphadenopathy (R), Lymphadenopathy (L), Stiff neck, Tracheal deviation Respiratory: positive: Chest non-tender, No respiratory distress, Breath sounds nml. negative: Wheezes, Rales, Rhonchi Cardiovascular: positive: Regular rate & rhythm, No murmur, No gallop. negative : Irregularly irregular, Extrasystoles, Tachycardia, Bradycardia, JVD present, Systolic murmur, Diastolic murmur Peripheral Pulses: positive: 2+ Abdomen: positive: Non-tender, No organomegaly, Nml bowel sounds, No distention. negative: Tenderness, Guarding, Rebound Back: positive: Nml inspection. negative: CVA tenderness (R), CVA tenderness (L) Skin: positive: Color nml, No rash, Warm, Dry. negative: Cyanosis, Diaphoresis, Pallor Extremities: positive: Non-tender, Full ROM, Nml appearance. negative: Calf tenderness, Amaris's sign/cords Neurologic/Psychiatric: positive: Oriented x3, Motor nml, Sensation nml, Mood/affect nml. negative: Weakness, Sensory loss, Facial droop, Slurred/abnml speech, Depressed mood/affect - LABS Result Diagrams: 08/06/19 05:15 08/06/19 05:15 - SEPSIS Current Stage of Sepsis: Ruled out - FOLLOW UP Follow Up: you tolerate regular diet. you have no nausea, vomiting or abdominal pain. you had bowel movement. Image study reveals normal abdominal radiography. GI surgeon agreed d/c you as well. you may followup your PCP, and tapper shank as out-pt as needed. Price Clerk consulted with you for your gaining weight, please followup instruction, change your eating habits and gain your weight. you may followup your PCP in 1-2 weeks, may followup tapper shank as out- pt. Should your symptoms return or worsen, you may present ER or call 911 for help. - TIME SPENT Time Spent in Discharge (Minutes): 50"
== END 2019-08-06 15:30 | disposition home or self-care (01) ==
LOC: ED 07:00 → MS2 10:24
PROVIDERS: ADMIT Nurse Practitioner Gerontology; ATTEND Nurse Practitioner Gerontology
DX: K56.609 Unspecified intestinal obstruction, unspecified as to partial versus complete obstruction (principal); E46 Unspecified protein-calorie malnutrition; Z68.1 Body mass index [BMI] 19.9 or less, adult; R07.9 Chest pain, unspecified; F17.210 Nicotine dependence, cigarettes, uncomplicated; Z79.891 Long term (current) use of opiate analgesic
CPT/HCPCS: 36415; 71045; 74019; 74177; 76705; 78226; 80048; 80053; 80306; 81003; 83690; 83735; 84443; 84484; 85025; 85379; 85610; 96361; 96365; 96366; 96375; 96376; 99284; 99285; A9270; G0378; J1170; J7040; Q9967; 81001; 87086

== ENCOUNTER 2019-10-14 09:13 | Outpatient (CLI) | payer MEDICAID ==
[2019-10-14 17:41] LABS: BASOPHILS # (AUTO) 0.1 10^3/uL (0.0-0.1); BASOPHILS % (AUTO) 0.5 %; EOSINOPHILS # (AUTO) 0.3 10^3/uL (0.0-0.7); EOSINOPHILS % (AUTO) 1.8 %; HGB - HEMOGLOBIN 13.9 g/dL (14.0-18.0); LYMPHOCYTES # (AUTO) 2.3 10^3/uL (1.5-3.5); LYMPHOCYTES % (AUTO) 14.9 %; MEAN CORPUSCULAR HGB CONC 31.7 g/dL (32.0-36.0); MEAN CORPUSCULAR VOLUME 94.6 fL (80.0-94.0); MEAN PLATELET VOLUME 9.7 fL (7.4-11.4); MONOCYTES # (AUTO) 0.8 10^3/uL (0.0-1.0); MONOCYTES % (AUTO) 5.3 %; NEUTROPHILS # (AUTO) 11.8 10^3/uL (1.5-6.6); PLT - PLATELET COUNT 233 10^3/uL (130-450); RED BLOOD COUNT 4.64 10^6/uL (4.70-6.10); RED CELL DISTRIBUTION WIDTH 12.2 % (12.0-15.0); WHITE BLOOD COUNT 15.4 x10^3/uL (4.8-10.8)
[2019-10-14 17:59] LABS: ALBUMIN 4.3 g/dL (3.2-5.5); ALBUMIN/GLOBULIN RATIO 1.8 (1.0-2.2); BILIRUBIN,TOTAL 0.6 mg/dL (0.2-1.0); CALCIUM 8.8 mg/dL (8.5-10.3); CREATININE 0.8 mg/dL (0.6-1.2); TOTAL PROTEIN 6.7 g/dL (6.7-8.2)
== END 2019-10-14 09:14 | disposition home or self-care (01) ==
LOC: LAB.S 09:13
PROVIDERS: ATTEND Registered Nurse
DX: R63.6 Underweight (principal)
CPT/HCPCS: 36415; 80053; 82607; 84443; 85025

== ENCOUNTER 2019-10-18 11:18 | Emergency (ER) | payer MEDICAID ==
[2019-10-18 11:24] VITALS: BP 128/79
[2019-10-18 11:54] LABS: BASOPHILS % (AUTO) 0.6 %; EOSINOPHILS # (AUTO) 0.1 10^3/uL (0.0-0.7); EOSINOPHILS % (AUTO) 0.9 %; HGB - HEMOGLOBIN 13.1 g/dL (14.0-18.0); LYMPHOCYTES # (AUTO) 0.9 10^3/uL (1.5-3.5); LYMPHOCYTES % (AUTO) 13.7 %; MEAN CORPUSCULAR HEMOGLOBIN 31.1 pg (27.0-31.0); MEAN CORPUSCULAR HGB CONC 33.2 g/dL (32.0-36.0); MEAN CORPUSCULAR VOLUME 93.6 fL (80.0-94.0); MEAN PLATELET VOLUME 8.8 fL (7.4-11.4); MONOCYTES # (AUTO) 0.5 10^3/uL (0.0-1.0); MONOCYTES % (AUTO) 7.2 %; NEUTROPHILS % (AUTO) 77.3 %; PLT - PLATELET COUNT 210 10^3/uL (130-450); RED BLOOD COUNT 4.21 10^6/uL (4.70-6.10); RED CELL DISTRIBUTION WIDTH 12.5 % (12.0-15.0); WHITE BLOOD COUNT 6.5 x10^3/uL (4.8-10.8)
[2019-10-18 12:07] LABS: ALBUMIN/GLOBULIN RATIO 1.7 (1.0-2.2); BILIRUBIN,TOTAL 0.5 mg/dL (0.2-1.0); CALCIUM 8.6 mg/dL (8.5-10.3); CREATININE 0.7 mg/dL (0.6-1.2); TOTAL PROTEIN 6.3 g/dL (6.7-8.2)
[2019-10-18] MEDS ORDERED: HYDROcod/ACETAM 5/325 MG TABLET PO STA (12:12)
--- NOTE | 2019-10-18 12:13 | ED Physician Documentation ---
PD HPI ABD PAIN - Stated complaint Stated Complaint: MALE - Chief complaint Chief Complaint: Abd Pain - History obtained from History obtained from: Patient - History of Present Illness Timing - onset: Yesterday (34-year-old gentleman with history of polycystic kidney disease developed gross hematuria last night. Associated with suprapubic pain as well as burning and dysuria and frequency. No back pain. He is also had waxing and waning bilateral testicular pain for the last 2 to 3 weeks that is not severe.) Review of Systems Ten Systems: 10 systems reviewed and negative Constitutional: denies: Fever, Chills GI: denies: Nausea, Vomiting, Constipation, Diarrhea : reports: Dysuria, Frequency, Hesitancy, Hematuria. denies: Incontinent PD PAST MEDICAL HISTORY - Past Medical History Past Medical History: Yes Cardiovascular: None Respiratory: None Endocrine/Autoimmune: None GI: Ulcers : Other Other Past Medical History: Bilateral kidney cysts. Bowel obstruction - Past Surgical History Past Surgical History: No - Present Medications Home Medications: Ambulatory Orders Medication Instructions Recorded Confirmed Acetaminophen 325 - 650 mg PO Q6H PRN 08/06/19 08/06/19 Docusate Sodium 250Mg Capsule 250 - 500 mg PO DAILY PRN #10 08/06/19 [Colace 250Mg Capsule] capsule Nicotine 14 mg Patch [Nicoderm] 1 patch TOP DAILY PRN #10 patch 08/06/19 Ondansetron HCl [Zofran] 4 mg PO QID PRN #15 tablet 08/06/19 oxyCODONE [Roxicodone] 5 mg PO Q4HR PRN #20 tablet 08/06/19 Hydrocodone/Acetaminophen 1 - 2 each PO Q6H PRN #7 tablet 10/18/19 [Hydrocodon-Acetaminophen 5-325] Nitrofurantoin Monohyd/M-Cryst 100 mg PO BID #10 capsule 10/18/19 [Macrobid 100 mg Capsule] Phenazopyridine HCl [Pyridium] 200 mg PO TID PRN #6 tablet 10/18/19 - Allergies Allergies/Adverse Reactions: Allergies Allergy/AdvReac Type Severity Reaction Status Date / Time No Known Drug Allergies Allergy Verified 10/18/19 11:21 - Social History Does the pt smoke?: Yes Smoking Status: Current every day smoker Does the pt drink ETOH?: Yes Does the pt have substance abuse?: Yes Substance Use and Type: Marijuana - Immunizations Immunizations are current?: Yes - POLST Patient has POLST: No POLST Status: Full Code PD ED PE NORMAL - Vitals Vital signs reviewed: Yes - General General: Alert and oriented X 3, No acute distress - HEENT HEENT: PERRL, EOMI - Neck Neck: Supple, no meningeal sign, No bony TTP - Abdomen Abdomen: Normal bowel sounds, Soft, Other (Mild tenderness in the suprapubic area. There is no flank tenderness.) - Male Male : Other (Normal circumcised male genitalia, testicles are minimally t nicolas symmetrically with normal cremaster reflexes bilaterally. Normal lie. No swelling. No inguinal masses or adenopathy.) - Neuro Neuro: Alert and oriented X 3, Normal speech Results - Vitals Vitals: Vital Signs - 24 hr 10/18/19 11:21 Temperature 36.5 C Heart Rate 62 Respiratory 14 Rate Blood Pressure 128/79 O2 Saturation 98 Oxygen O2 Source Room air - Labs Labs: Laboratory Tests 10/18/19 10/18/19 10/18/19 11:50 11:50 12:43 WBC 6.5 RBC 4.21 L Hgb 13.1 L Hct 39.4 L MCV 93.6 MCH 31.1 H MCHC 33.2 RDW 12.5 Plt Count 210 MPV 8.8 Neut # (Auto) 5.0 Lymph # (Auto) 0.9 L [place] # (Auto) 0.5 Eos # (Auto) 0.1 Baso # (Auto) 0.0 Absolute Nucleated RBC 0.00 Nucleated RBC % 0.0 Sodium 139 Potassium 3.9 Chloride 106 Carbon Dioxide 25 Anion Gap 8.0 BUN 13 Creatinine 0.7 Estimated GFR (MDRD) 128 Glucose 125 H Calcium 8.6 Total Bilirubin 0.5 AST 18 ALT 15 Alkaline Phosphatase 44 Total Protein 6.3 L Albumin 4.0 Globulin 2.3 Albumin/Globulin Ratio 1.7 Lipase 22 Urine Color YELLOW Urine Clarity CLEAR Urine pH 6.0 Ur Specific [place] 1.020 Urine Protein NEGATIVE Urine Glucose (UA) NEGATIVE Urine Ketones NEGATIVE Urine Occult Blood TRACE-INTA Urine Nitrite NEGATIVE Urine Bilirubin NEGATIVE Urine Urobilinogen 0.2 (NORMAL) Ur Leukocyte Esterase TRACE H Urine RBC None Seen Urine WBC 4-5 Ur Squamous Epith Cells RARE Squamous Urine Bacteria Rare Ur Microscopic Review INDICATED Urine Culture Comments INDICATED - Rads (name of study) Scrotal ultrasound Radiology: Prelim report reviewed (Normal) PD MEDICAL DECISION MAKING - ED course ED course: 34-year-old gentleman with symptoms most consistent with cystitis, some concern for testicular issue based on the testicular pain but ultrasound exam there were negative. He doubts STDs, no high risk exposures. We will test for same though and treat with Macrobid per up-to-date recommendations pending the culture. Departure - Departure Disposition: 01 Home, Self Care Clinical Impression: Cystitis, Polycystic kidney, Testicular pain Condition: Good Record reviewed to determine appropriate education?: Yes Instructions: ED UTI Cystitis Male Prescriptions: Hydrocodone/Acetaminophen [Hydrocodon-Acetaminophen 5-325] 1 - 2 each PO Q6H PRN #7 tablet PRN Reason: pain Nitrofurantoin Monohyd/M-Cryst [Macrobid 100 mg Capsule] 100 mg PO BID #10 capsule Phenazopyridine HCl [Pyridium] 200 mg PO TID PRN #6 tablet PRN Reason: dysuria Comments: We will culture your urine, the results should be done in 48-72 hours. If an antibiotic change is necessary we will call you. Return if worse in the meantime, especially if you develop increasing flank pain, fevers, or cannot keep down the medication. Followup with your physician in 3-4 days for recheck
--- NOTE | 2019-10-18 13:12 | Ultrasound Report ---
Reason: testicular pain Procedure Date: 10/18/2019 Accession Number: [id number] / [id number] Procedure: US - Testicle w/Doppler CPT Code: Final Report FULL RESULT: US: US SCROTUM WITH DOPPLER EXAM: SCROTAL ULTRASOUND WITH DOPPLER EXAM DATE: 10/18/2019 12:47 PM. CLINICAL HISTORY: Testicular pain. COMPARISON: None. TECHNIQUE: Real time sonographic grayscale and color/spectral Doppler images of the scrotum with static images were obtained. Spectral Doppler was used to completely evaluate the testicular vasculature for torsion. FINDINGS: Right: Testis: 4.1 x 2.2 x 2.7 cm. Normal size and echotexture. No mass. No calcification. Normal arterial and venous flow present. Epididymis: 0.9 x 0.8 x 1.21 cm. Normal size and echotexture. No mass. Normal blood flow is present. Hydrocele: Small hydrocele noted. Varicocele: None. Testis: 3.6 x 2.2 x 2.6 cm. Normal size and echotexture. No mass. No calcification. Normal arterial and venous flow present. Epididymis: 1.3 x 1.0 x 0.8 cm. Normal size and echotexture. No mass. Normal blood flow is present. Hydrocele: Small hydrocele noted. Varicocele: None. IMPRESSION: 1. Normal scrotal Doppler ultrasound. No evidence of torsion. RADIA
[2019-10-18 13:13] LABS: BILIRUBIN,URINE NEGATIVE (NEGATIVE); GLUCOSE, URINE (UA) NEGATIVE (NEGATIVE); KETONES,URINE (UA) NEGATIVE (NEGATIVE); LEUKOCYTE ESTERASE, URINE TRACE (NEGATIVE); NITRITE,URINE NEGATIVE (NEGATIVE); OCCULT BLOOD,URINE TRACE-INTA (NEGATIVE); PROTEIN,URINE NEGATIVE (NEGATIVE); UROBILINOGEN,URINE 0.2 (NORMAL) E.U./dL (NORMAL)
[2019-10-18 13:25] LABS: BACTERIA,URINE Rare /HPF (None Seen); CLARITY,URINE CLEAR (CLEAR); RBC,URINE None Seen /HPF (0-5); SQUAMOUS EPITHELIAL CELL,UR RARE Squamous (<= Few)
[2019-10-18 21:58] LABS: TRICHOMONAS VAGINALIS DNA NEGATIVE (NEGATIVE)
== END 2019-10-18 13:40 | disposition home or self-care (01) ==
LOC: ED 11:18
DX: N30.91 Cystitis, unspecified with hematuria (principal); Q61.3 Polycystic kidney, unspecified; N50.812 Left testicular pain; N50.811 Right testicular pain; F17.200 Nicotine dependence, unspecified, uncomplicated
CPT/HCPCS: 36415; 76870; 80053; 81001; 83690; 85025; 87086; 87491; 87591; 87661; 93975; 99284; A9270; 81003

== ENCOUNTER 2019-11-30 09:00 | Emergency (ER) | payer MEDICAID ==
[2019-11-30] MEDS ORDERED: HYDROmorphone 1 MG/ML CARPUJECT IVP STA ×2 (09:37→10:57)
[2019-11-30] MEDS ORDERED: PANTOPRAZOLE 40 MG VIAL IVP STA (09:37)
[2019-11-30] MEDS ORDERED: SODIUM CHLORIDE 0.9% 1,000 ML IV ONE ×2 (09:37→12:29)
[2019-11-30] MEDS ORDERED: ONDANSETRON 4 MG/2 ML VIAL IVP STA (09:37)
--- NOTE | 2019-11-30 09:41 | ED Physician Documentation ---
PD HPI ABD PAIN - Stated complaint Stated Complaint: ABD PX - Chief complaint Chief Complaint: Abd Pain - History obtained from History obtained from: Patient - History of Present Illness Timing - onset: Enter time (0200), Last night Timing - duration: Hours Timing - details: Abrupt onset Quality: Cramping, Sharp, Pain Location: Epigastric, Periumbilical Improved by: Laying still Worsened by: Moving, Position, Palpation Associated symptoms: Nausea. No: Vomiting, Diarrhea Similar symptoms before: Diagnosis (small bowel obstruction) Recently seen: Emergency Dept - Additional information Additional information: 34-year-old male with a history of polycystic kidney disease has developed acute abdominal pain that 2:00 in the morning this morning. He states he was well yesterday eating normally and functioning normally not feeling sick and at 2:00 in the morning he developed amanda-umbilical abdominal pain that has persisted and worsened through the night. He has had some nausea and v omitted about "3 gallons" he has not had any diarrhea. He has had admission to the hospital for similar symptoms in July of last year at which time he had a partial small bowel obstruction. He resolved with bowel rest and intravenous fluids. He did not change his therapies and he has not had upper endoscopy. He states that wh en he was seen in the emergency department earlier in the month this month for urinary symptoms his symptoms resolved. Review of Systems Constitutional: denies: Fever, Chills Eyes: denies: Decreased vision Ears: denies: Ear pain Nose: denies: Rhinorrhea / runny nose, Congestion Throat: denies: Sore throat Cardiac: denies: Chest pain / pressure, Palpitations Respiratory: denies: Dyspnea, Cough GI: reports: Abdominal Pain, Nausea. denies: Diarrhea : denies: Dysuria, Frequency Skin: denies: Rash Musculoskeletal: denies: Neck pain, Back pain, Extremity pain Neurologic: denies: Generalized weakness, Focal weakness, Numbness PD PAST MEDICAL HISTORY - Past Medical History Past Medical History: Yes Cardiovascular: None Respiratory: None Endocrine/Autoimmune: None GI: Ulcers : Other Other Past Medical History: POLY CYSTIC KIDNEYS - Past Surgical History Past Surgical History: No - Present Medications Home Medications: Ambulatory Orders Medication Instructions Recorded Confirmed Acetaminophen 325 - 650 mg PO Q6H PRN 08/06/19 08/06/19 Docusate Sodium 250Mg Capsule 250 - 500 mg PO DAILY PRN #10 08/06/19 [Colace 250Mg Capsule] capsule Nicotine 14 mg Patch [Nicoderm] 1 patch TOP DAILY PRN #10 patch 08/06/19 Ondansetron HCl [Zofran] 4 mg PO QID PRN #15 tablet 08/06/19 oxyCODONE [Roxicodone] 5 mg PO Q4HR PRN #20 tablet 08/06/19 Hydrocodone/Acetaminophen 1 - 2 each PO Q6H PRN #7 tablet 10/18/19 [Hydrocodon-Acetaminophen 5-325] Nitrofurantoin Monohyd/M-Cryst 100 mg PO BID #10 capsule 10/18/19 [Macrobid 100 mg Capsule] Phenazopyridine HCl [Pyridium] 200 mg PO TID PRN #6 tablet 10/18/19 Promethazine [Phenergan] 25 mg PO Q6H PRN #10 tab 11/30/19 - Allergies Allergies/Adverse Reactions: Allergies Allergy/AdvReac Type Severity Reaction Status Date / Time No Known Drug Allergies Allergy Verified 11/30/19 09:10 - Social History Does the pt smoke?: Yes Smoking Status: Current every day smoker Does the pt drink ETOH?: No Does the pt have substance abuse?: Yes Substance Use and Type: Marijuana - Immunizations Immunizations are current?: Yes - POLST Patient has POLST: No POLST Status: Full Code PD ED PE NORMAL - Vitals Vital signs reviewed: Yes (hypertensive) - General General: Alert and oriented X 3, Well developed/nourished, Other (34-year-old male with the appearance of pain on his face with labeler tone and flattened affect is withdrawn and in the position. He appears to be acutely in pain.) - HEENT HEENT: Atraumatic, PERRL, EOMI - Neck Neck: Supple, no meningeal sign, No bony TTP - Cardiac Cardiac: RRR, No murmur - Respiratory Respiratory: No respiratory distress, Clear bilaterally - Abdomen Abdomen: Other (The abdomen is firm and garding is present. There is pain to movement of the body itself referred to the center of the abdomen. There is not specific RUQ or RLQ pain but it all hurts to touch. ) - Back Back: No spinal TTP, Other (The flanks are tender but do not exacerbate the pain like abdominal exam does. ) - Derm Derm: Normal color, Warm and dry, No rash - Extremities Extremities: No deformity, No edema, No calf tenderness / cord - Neuro Neuro: finish saw operator 2-12 intact, No motor deficit, No sensory deficit, Normal speech Eye Opening: Spontaneous Motor: Obeys Commands Verbal: Oriented GCS Score: 15 - Psych Psych: Other (mood is withdrawn and the affect is blunted. ) Results - Vitals Vitals: Vital Signs - 24 hr 11/30/19 11/30/19 11/30/19 09:10 11:39 13:36 Temperature 36.5 C Heart Rate 59 L 57 L 87 Respiratory 18 15 16 Rate Blood Pressure 126/86 H 123/58 L 110/48 L O2 Saturation 100 100 100 11/30/19 13:49 Temperature Heart Rate 88 Respiratory Rate Blood Pressure 128/78 O2 Saturation 97 Oxygen O2 Source Room air - Labs Labs: Laboratory Tests 11/30/19 11/30/19 11/30/19 09:52 09:52 09:52 WBC 13.6 H RBC 4.58 L Hgb 14.5 Hct 41.3 L MCV 90.2 MCH 31.7 H MCHC 35.1 RDW 12.0 Plt Count 244 MPV 9.3 Neut # (Auto) 12.1 H Lymph # (Auto) 0.8 L [place] # (Auto) 0.6 Eos # (Auto) 0.0 Baso # (Auto) 0.0 Absolute Nucleated RBC 0.00 Nucleated RBC % 0.0 Sodium 137 Potassium 3.5 Chloride 103 Carbon Dioxide 22 Anion Gap 12.0 BUN 16 Creatinine 0.6 Estimated GFR (MDRD) 152 Glucose 138 H Lactic Acid 1.8 Calcium 9.5 Total Bilirubin 0.6 AST 28 ALT 20 Alkaline Phosphatase 51 Total Protein 7.5 Albumin 5.2 Globulin 2.3 Albumin/Globulin Ratio 2.3 H Lipase 19 L Urine Color Urine Clarity Urine pH Ur Specific [place] Urine Protein Urine Glucose (UA) Urine Ketones Urine Occult Blood Urine Nitrite Urine Bilirubin Urine Urobilinogen Ur Leukocyte Esterase Ur Microscopic Review Urine Culture Comments 11/30/19 11:40 WBC RBC Hgb Hct MCV MCH MCHC RDW Plt Count MPV Neut # (Auto) Lymph # (Auto) [place] # (Auto) Eos # (Auto) Baso # (Auto) Absolute Nucleated RBC Nucleated RBC % Sodium Potassium Chloride Carbon Dioxide Anion Gap BUN Creatinine Estimated GFR (MDRD) Glucose Lactic Acid Calcium Total Bilirubin AST ALT Alkaline Phosphatase Total Protein Albumin Globulin Albumin/Globulin Ratio Lipase Urine Color YELLOW Urine Clarity CLEAR Urine pH >=9.0 H Ur Specific [place] 1.010 Urine Protein TRACE Urine Glucose (UA) NEGATIVE Urine Ketones NEGATIVE Urine Occult Blood TRACE-INTA Urine Nitrite NEGATIVE Urine Bilirubin NEGATIVE Urine Urobilinogen 0.2 (NORMAL) Ur Leukocyte Esterase NEGATIVE Ur Microscopic Review NOT INDICATED Urine Culture Comments NOT INDICATED - Rads (name of study) CT abd/pel with Radiology: Prelim report reviewed (Impression: Periportal edema. Multiple renal cyst. Atherosclerosis of the iliac arteries.), EMP read indepedently, See rad report PD MEDICAL DECISION MAKING - ED course Complexity details: reviewed results, re-evaluated patient, considered differential, d/w patient ED course: 34-year-old male who has had episodes of severe abdominal pain and vomiting with radiation of the pain into his chest over the past 2-1/2 years has an episode today. He has had vomiting since 2:00 in the morning and after treatment here in the emergency department his pain is somewhat improved and the only finding on his CT scan of significance is the presence of periportal edema. I did note that his stomach appeared full and distended despite multiple vomiting. His treatment was centered at treating cannabis hyperemesis. He was given IV haldol 2mg with dialudid and zofran as well as IV fluids. 5 hours into his treatment his crisis is over and he wants to go home. Departure - Departure Disposition: 01 Home, Self Care Clinical Impression: Abdominal pain Qualifiers: Abdominal location: generalized Qualified Code(s): R10.84 - Generalized abdominal pain Nausea & vomiting Qualifiers: Vomiting type: unspecified Vomiting Intractability: non-intractable Qualified Code(s): R11.2 - Nausea with vomiting, unspecified Condition: Stable Instructions: ED Nausea Vomiting Follow-Up: Monica Tate ARNP [Primary Care Provider] - Prescriptions: Promethazine [Phenergan] 25 mg PO Q6H PRN #10 tab PRN Reason: Nausea / Vomiting Comments: Today her episode of vomiting is concerning for cannabis hyperemesis syndrome. The recommendation is to reduce your intake of cannabis. I have prescribed some Phenergan for use today should you have more nausea.
[2019-11-30] MEDS ORDERED: IOVERSOL 320 100 ML VIAL IVP ONE ×2 (09:42→13:31)
[2019-11-30 09:59] LABS: BASOPHILS % (AUTO) 0.3 %; EOSINOPHILS % (AUTO) 0.1 %; HGB - HEMOGLOBIN 14.5 g/dL (14.0-18.0); LYMPHOCYTES # (AUTO) 0.8 10^3/uL (1.5-3.5); LYMPHOCYTES % (AUTO) 6.2 %; MEAN CORPUSCULAR HEMOGLOBIN 31.7 pg (27.0-31.0); MEAN CORPUSCULAR HGB CONC 35.1 g/dL (32.0-36.0); MEAN CORPUSCULAR VOLUME 90.2 fL (80.0-94.0); MEAN PLATELET VOLUME 9.3 fL (7.4-11.4); MONOCYTES # (AUTO) 0.6 10^3/uL (0.0-1.0); MONOCYTES % (AUTO) 4.3 %; NEUTROPHILS # (AUTO) 12.1 10^3/uL (1.5-6.6); NEUTROPHILS % (AUTO) 88.6 %; PLT - PLATELET COUNT 244 10^3/uL (130-450); RED BLOOD COUNT 4.58 10^6/uL (4.70-6.10); WHITE BLOOD COUNT 13.6 x10^3/uL (4.8-10.8)
[2019-11-30 10:13] LABS: ALBUMIN 5.2 g/dL (3.2-5.5); ALBUMIN/GLOBULIN RATIO 2.3 (1.0-2.2); BILIRUBIN,TOTAL 0.6 mg/dL (0.2-1.0); CALCIUM 9.5 mg/dL (8.5-10.3); CREATININE 0.6 mg/dL (0.6-1.2); TOTAL PROTEIN 7.5 g/dL (6.7-8.2)
[2019-11-30 11:44] LABS: BILIRUBIN,URINE NEGATIVE (NEGATIVE); GLUCOSE, URINE (UA) NEGATIVE (NEGATIVE); KETONES,URINE (UA) NEGATIVE (NEGATIVE); LEUKOCYTE ESTERASE, URINE NEGATIVE (NEGATIVE); NITRITE,URINE NEGATIVE (NEGATIVE); OCCULT BLOOD,URINE TRACE-INTA (NEGATIVE); PH,URINE >=9.0 PH (5.0-7.5); PROTEIN,URINE TRACE mg/dL (NEGATIVE); UROBILINOGEN,URINE 0.2 (NORMAL) E.U./dL (NORMAL)
--- NOTE | 2019-11-30 11:45 | CT Report ---
Reason: epigastric pain severe Procedure Date: 11/30/2019 Accession Number: [id number] / [id number] Procedure: CT - Abdomen/Pelvis W CPT Code: Final Report FULL RESULT: EXAM: CT ABDOMEN AND PELVIS EXAM DATE: 11/30/2019 10:53 AM. CLINICAL HISTORY: Epigastric pain severe. COMPARISONS: ABDOMEN/PELVIS W/ 08/04/2019 8:25 AM. TECHNIQUE: Routine helical CT imaging was performed through the abdomen and pelvis. IV contrast: 80 cc OPTIRAY 320. Reconstructions: Coronal and sagittal. In accordance with CT protocol optimization, one or more of the following dose reduction techniques were utilized for this exam: automated exposure control, adjustment of mA and/or KV based on patient size, or use of iterative reconstructive technique. FINDINGS: Lung Bases: The lung bases are without evidence of a man. Solid organs: The liver is without evidence of an enhancing mass. Periportal edema is noted. The spleen, pancreas, and adrenal glands are normal in appearance. Cysts are noted within both kidneys. There is no evidence of hydronephrosis. Peritoneal Cavity/Bowel: The appendix is normal in appearance. There are no dilated loops of bowel to suggest the presence of an obstruction. There is no evidence of diverticulosis or diverticulitis. Pelvic Organs: No mass or cyst is seen within the pelvis. Vasculature: There is atherosclerosis of the iliac arteries. There is no evidence of an abdominal aortic aneurysm. Bones: No significant abnormality. Other: None. IMPRESSION: Periportal edema. Multiple renal cysts. Atherosclerosis of the iliac arteries. RADIA
[2019-11-30 11:56] LABS: CLARITY,URINE CLEAR (CLEAR)
[2019-11-30] MEDS ORDERED: HALOPERIDOL 5 MG/ML VIAL IVP ONE (12:28)
[2019-11-30 13:52] VITALS: BP 128/78
== END 2019-11-30 14:27 | disposition home or self-care (01) ==
LOC: ED 09:00
DX: R10.84 Generalized abdominal pain (principal); R11.2 Nausea with vomiting, unspecified; F17.210 Nicotine dependence, cigarettes, uncomplicated
CPT/HCPCS: 36415; 74177; 80053; 81003; 83605; 83690; 85025; 87040; 96361; 96374; 96375; 96376; 99284; 99285; J1170; Q9967; 81001; 87086